=== PATIENT | female | born 2000 | race Two or more races ===

== ENCOUNTER 2024-09-04 08:56 | Outpatient (AMB) | payer BC, SELFPAY ==
[2024-09-04 09:02] VITALS: BP 100/62; PULSE 80; RESP 16; TEMP 35.7; O2SAT 99; BMI 24.1
--- NOTE | 2024-09-04 09:02 | OBCLNT_ITS ---
Vital Signs 09/04/24 09:02 Height 1.6 m Height Method Stated Weight 61.915 kg Weight Measurement Method Standing Scale BMI 24.1 BP 100/62 Blood Pressure Source Automatic Cuff Blood Pressure Location Left Upper Arm Position Sitting Respiration 16 Pulse 80 Pulse Source Monitor Temp 96.3 F L Temp Source Oral Pulse Oximetry (%) 99 Oxygen Delivery Method Room Air Allergies/Home Meds Allergies & Medications Allergies No Known Allergies Allergy (Verified 09/04/24 09:03) Medication Reconciliation No Known Home Medications 09/04/24 [History Confirmed 09/04/24] Intake Visit Data Collection New Patient or Established: Established Patient (seen at [facility] within 3 years) Reason for Visit:: First visit for confirmation Seen by Clinical Staff ONLY (RN/MA): No Higher Level Teaching Assistant Required: No Do You Feel Safe at Home: Yes Authorities Contacted: N/A PCP or OBGYN visit in last 3 months: Yes Date of Last PCP or OBGYN visit: 08/27/24 Hx Now: Yes Are you currently on any form of Control: No Pain Present Currently: No Pain Scale Used: Ch-Child/Numerical Pain scale:: 0 Smoking Status Smoking Status: Never smoker Questionnaires Covid-19 Vaccine Questionnaire Has patient been vacinated for Covid-19 Have you been vacinated for Covid-19: Yes PHQ-9 PHQ-2 Over the last 2 weeks, how often have you been bothered by any of the following problems? 1. Little interest or pleasure in doing things: not at all 2. Feeling down, depressed, or hopeless: not at all Total score: 0 PHQ-9 3. Trouble falling or staying asleep, or sleeping too much: Not at all 4. Feeling tired or having little energy: Not at all 5. Poor appetite or overeating: Not at all 6. Feeling bad about yourself - or that you are a failure or have let yourself or your family down: Not at all 7. Trouble concentrating on things, such as reading the newspaper or watching television: Not at all 8. Moving or speaking so slowly that other people could have noticed? - Or the opposite - being so fidgety or restless that you have been moving around a lot more than usual: not at all 9. Thoughts that you would be better off or of hurting yourself in some way: Not at all Total score: 0 If you checked off any problems, how difficult have these problems made it for you to do your work, take care of things at home, or get along with other people?: not difficult at all Source: Developed by Drs. Oscar Quarles, Lottie Boswell, Anjel Berry and colleagues, with an educational gage from [employer]. Depression screen completed yes Social History Living Situation History Marital Status: Life Partner Lives With: Family Housing: House Tobacco History Smoking Status: Never smoker Alcohol History Alcohol Intake: Never Domestic Abuse History Do You Feel Safe at Home: Yes Past Medical History Past Medical History Have you ever been diagnosed with any of the following: History of Present Illness HPI Narrative Justina Ryan presents for her first visit for a newly confirmed . She is unsure of her last menstrual period date and has not had any detailed labs or tests done yet, aside from a positive test at a doctor's office. The patient reports having an 8-month-old son from a previous , which was delivered normally at [facility]. She has stopped her son. Justina is currently taking vitamins and has an adequate supply. No specific complaints or symptoms related to the were mentioned during the visit. The patient's overall health status appears stable, with no reported concerns or changes in functioning. Obstetric History - GTPAL: G2 T1 L1 - Current : - Gestational age: Approximately 15 weeks based on ultrasound measurements - history: - Delivered a healthy male infant (Antwan) 8 months ago - Normal vaginal at [facility] - Delivered by Dr. Gurrola (possibly Radhika Gurrola) Surgical History - Vaginal delivery 8 months ago Medications and Supplements - vitamins Social History - Children: Has an 8-month-old son named Antwan - : Recently stopped OB Initial Visit Menstrual History Menstrual reliability: unknown Flow: normal Menstrual regularity: irregular Monthly: No Age at menarche: 14 On control pills at conception: No OB History : 2 Para: 1 Hx Total # of Abortions (Spontaneous & Elective): 0 Delivery History 1st : date: 12/10/23 sex: male Delivery type: vaginal History of depression before or after : No Infection History & Risk Evaluation History of STDs: none HIV risk evaluation: low risk Hepatitis B risk evaluation: low risk Patient or partner has history of Genital Herpes: No Varicella/chicken pox status: immunized Genetic Screening & History Genetic Screening/Teratology Counseling - Includes patient, baby's father, or anyone in either family with: 1. Patient's age 35 years or older as of estimated date of delivery: No 2. Thalassemia (Palestinian, Maltese, Mediterranean, or Background); MCV less than 80: No 3. Neural Tube Defect (Meningomyelocele, Spina Bifida, or Anencephaly): No 4. Congenital Heart Defect: No 5. Down Syndrome: No 6. Franck-Sachs (Ashkenazi Orthodox, Cajun, Romanian [place]): No 7. Kinza Disease (Ashkenazi Orthodox): No 8. Familial Dysautonomia (Ashkenazi Orthodox): No 9. Sickle Cell Disease or Trait (): No 10. Hemophilia or other blood disorders: No 11. Muscular Dystrophy: No 12. Cystic Fibrosis: No 13. Vanessa's Chorea: No 14. Mental Retardation/Autism: No 15. Other inherited genetic or chromosomal disorder: No 16. Maternal Metabolic Disorder (EG,TYPE 1 Diabetes, PKU): No 17. Patient or baby's father had a child with defects not listed above: No 18. Recurrent loss or a stillbirth: No 19. Medications (including supplements, vitamins, herbs or otc drugs)/illicit/recreational drugs/alcohol since last menstrual period: No 20. Any other: No Infection History 1. Live with someone with TB or exposed to TB: No 2. Rash or viral illness since last menstrual period: No 3. Hepatitis B,C: No Other (see comments) Source: [employer] OB Flowsheet OB Flowsheet Initial Weight: Not Recorded Date -?-?-?-?-?-?-?-?-?-?-?-?- EGA Weight Edema CTX Effacement BP Fundal ht Pres Dilation Effacement Station Visit Note Alb Glu FHR Mov 09/04/24 -?-?-?-?-?-?-?-?-?-?-?-?- 15w 0d 61.915 kg 100/62 Gabe Ryan, at approx. 15w0d, presents for initial visit. No CTX/LOF/VB. Reports good overall heal th. No CABRERA/VS, Epig/RUQ pain. Unsure of LMP; confirmed previ ously. Delivered healthy male (Antwan) 8 months ago via vaginal delivery at [place] by Dr. Gurrola. No current complaints. Has stopped . Taking vitamins. Ultrasound (09/04/2024): FHR 148 bpm, EGA ~15w based on HC. Femur and tibia visualized. Assessment & Plan: Confirmed intrauterine , dating by ultrasound at ~15w0d. Complete comprehensive ultrasound for da ting and anatomy Order full initial lab panel Order genetic screening (trisomy 13/18 1) [facility] Labs to be completed at [facility] due to insurance Continue vitamins Provided paperwork for labs and imaging Reviewed education and warning signs Review of Systems Review of Systems Systems Reviewed: All systems reviewed, normal except as documented Exam General Limitations: no limitations General Appearance: alert, in no apparent distress and comfortable Head Head exam: atraumatic and normocephalic Eye Eye exam: Present normal appearance, PERRL and EOMI Neck Neck exam: Present normal inspection and full ROM Chest Chest inspection: Present normal inspection and symmetric chest wall rise; Absent tenderness Resp Respiratory exam: Present normal lung sounds bilaterally; Absent respiratory distress Card Cardiovascular exam: Present regular rate and normal rhythm Abdominal Abdominal exam: Present soft and normal bowel sounds; Absent tenderness, guarding, rebound or rigidity Neuro Neurological exam: Present alert and oriented X3 Psych Psychiatric exam: Present normal affect Results Objective Imaging: - Bedside ultrasound: - Estimated gestational age: 15 weeks (based on head circumference) - heart rate: 148 bpm (normal) Assessment & Plan Diagnosis / Problem List (1) Supervision of high risk , unspecified, second trimester: Status: Acute Plan Justina Ryan, female presenting for initial visit, unsure of last menstrual period, with an 8-month-old son from a previous normal delivery. Intrauterine Assessment: Patient presents for initial visit with confirmed test from previous doctor visit. Ultrasound performed in office estimates gestational age at approximately 15 weeks based on head circumference measurement. heart rate of 148 bpm noted, which is within normal range. Patient reports stopping her previous child. Plan: - Perform comprehensive ultrasound today for more accurate dating and measurements - Order initial lab panel - Order genetic panel for Down syndrome and other trisomies screening - Schedule level 2 anatomy ultrasound with [facility] in [place] (part of genetic screening process) - Continue vitamins - Patient to obtain lab work at [facility] in [facility] due to insurance requirements - Provide patient with all necessary paperwork for labs and ultrasounds Educated the patient on the importance of care, including taking vitamins with folic acid, iron, and calcium. Emphasized avoiding alcohol, smoking, and certain medications. Discussed common symptoms like nausea and fatigue, advising small, frequent meals and adequate hydration. Explained t he need for regular check-ups and recommended safe physical activities. Instructed on signs of complications, such as severe cramping or bleeding, and when to seek immediate medical attention. Highlighted the importance of a balanced diet and avoiding high-risk foods. Encouraged open communication about any concerns or questions. Encouraged keeping up with all appointments and tests Office Procedures OB Clinic LOC & Office Proc's Nursing/Assessment Patient Status: Established Patient OB Clinic Nursing Assessment: BP Monitoring, Medication Reconciliation, Update PMH in EMR and Vital Signs OB Clinic Coordination of Care: Consent,records obtained, informed consent, Education Simp Pt/Fam, Lab and Imaging orders and Staff clarify orders Established Patient Charge Established Patient Point Assignment: 90 Established Patient Point Charge: EP Level 3 (80-115) Bedside Ultrasounds US Transabdominal >14 weeks at bedside: Yes
== END 2024-09-04 09:23 | disposition home or self-care (01) ==
LOC: HODSOBC 08:56
PROVIDERS: PCP Obstetrics & Gynecology; Referring Provider Obstetrics & Gynecology; Supervising Provider Obstetrics & Gynecology; Visit Provider Obstetrics & Gynecology
DX: O09.92 Supervision of high risk pregnancy, unspecified, second trimester (principal); Z3A.15 15 weeks gestation of pregnancy
CPT/HCPCS: 76801; 76805; 99213; G0463

== ENCOUNTER → 2024-09-04 | Outpatient (CLI) | payer BC, SELFPAY ==
--- NOTE | 2024-09-04 10:11 | XR_ITS ---
Examination: Complete OB ultrasound greater than 14 weeks Date and time of exam: September 04, 2024 1026 hours INDICATIONS: Supervision of normal Findings: Viable intrauterine single fetus with single amniotic sac presentation transverse head maternal left Cardiac motion 152 BPM Placenta posterior grade 2 Umbilical cord insertion seen Amniotic fluid index 7.0 cm spine posterior Ovaries obscured by bowel gas. Composite estimated gestational age based on BPD, head circumference, abdominal circumference, femur length is 14 weeks 5 days Estimated weight 94 g. Survey of intracranial anatomy, spinal anatomy, abdominal anatomy, four-chamber heart performed with no abnormalities identified. Impression: Viable intrauterine gestation transverse presentation.
== END | disposition home or self-care (01) ==
PROVIDERS: PCP Family Medicine; Referring Provider Obstetrics & Gynecology; Visit Provider Obstetrics & Gynecology
DX: O32.2XX0 Maternal care for transverse and oblique lie, not applicable or unspecified (principal); Z3A.14 14 weeks gestation of pregnancy
CPT/HCPCS: 76805

== ENCOUNTER 2024-10-07 09:22 | Outpatient (AMB) | payer BC, SELFPAY ==
[2024-10-07 09:35] VITALS: BP 116/66; PULSE 87; RESP 15; TEMP 36.5; O2SAT 98; BMI 25.0
--- NOTE | 2024-10-07 09:35 | AMB.OBVISIT ---
Vital Signs 10/07/24 09:35 Height 1.6 m Height Method Stated Weight 64.013 kg Weight Measurement Method Standing Scale BMI 25.0 BP 116/66 Blood Pressure Source Automatic Cuff Blood Pressure Location Left Upper Arm Position Sitting Respiration 15 Pulse 87 Pulse Source Monitor Temp 97.7 F Temp Source Oral Pulse Oximetry (%) 98 Oxygen Delivery Method Room Air Allergies/Home Meds Allergies & Medications Allergies No Known Allergies Allergy (Verified 10/07/24 09:36) Medication Reconciliation No Known Home Medications 09/04/24 [History Confirmed 10/07/24] Intake Visit Data Collection New Patient or Established: Established Patient (seen at [facility] within 3 years) Reason for Visit:: care Seen by Clinical Staff ONLY (RN/MA): No Material Expediter Required: No Do You Feel Safe at Home: Yes Authorities Contacted: N/A PCP or OBGYN visit in last 3 months: Yes Hx Now: Yes Are you currently on any form of Control: No Pain Present Currently: No Pain Scale Used: Ch-Child/Numerical Pain scale:: 0 Smoking Status Smoking Status: Never smoker Questionnaires Covid-19 Vaccine Questionnaire Has patient been vacinated for Covid-19 Have you been vacinated for Covid-19: No PHQ-9 PHQ-2 Over the last 2 weeks, how often have you been bothered by any of the following problems? 1. Little interest or pleasure in doing things: not at all 2. Feeling down, depressed, or hopeless: not at all Total score: 0 PHQ-9 3. Trouble falling or staying asleep, or sleeping too much: Not at all 4. Feeling tired or having little energy: Not at all 5. Poor appetite or overeating: Not at all 6. Feeling bad about yourself - or that you are a failure or have let yourself or your family down: Not at all 8. Moving or speaking so slowly that other people could have noticed? - Or the opposite - being so fidgety or restless that you have been moving around a lot more than usual: not at all 9. Thoughts that you would be better off or of hurting yourself in some way: Not at all Source: Developed by Drs. Oscar Quarles, Lottie Boswell, Anjel Berry and colleagues, with an educational gage from [employer]. Depression screen completed yes Social History Living Situation History Lives With: Family Housing: House Tobacco History Smoking Status: Never smoker Alcohol History Alcohol Intake: Never Domestic Abuse History Do You Feel Safe at Home: Yes Past Medical History Past Medical History Have you ever been diagnosed with any of the following: History of Present Illness HPI Narrative - Justina Suarez is a 2 para 1 patient at 19 weeks and 5 days gestation, presenting for a routine visit. - Patient reports overall improvement in her symptoms: - Denies current nausea, vomiting, or cramping - States these symptoms are getting better now - No other specific complaints or concerns mentioned during the visit No contractions/ LOF/VB, reports good FM No CABRERA/VC/RUQ/Epig pain Care OB Visit Log OB Flowsheet Initial Weight: Not Recorded Date <del>?</del> EGA Weight Edema CTX Effacement BP Fundal ht Pres Dilation Effacement Station Visit Note Alb Glu FHR Mov 09/04/24 <del>?</del> 15w 0d 61.915 kg 100/62 Justina Ryan, at approx. 15w0d, presents for initial visit. No CTX/LOF/VB. Reports good overall health. No CABRERA/VS, Epig/RUQ pain. Unsure of LMP; confirmed previously. Delivered healthy male (Antwan) 8 months ago via vaginal delivery at [place] by Dr. Gurrola. No current complaints. Has stopped . Taking vitamins. Ultrasound (09/04/2024): FHR 148 bpm, EGA ~15w based on HC. Femur and tibia visualized. Assessment & Plan: Confirmed intrauterine , dating by ultrasound at ~15w0d. Complete comprehensive ultrasound for dating and anatomy Order full initial lab panel Order genetic screening (trisomy 13/18/21) Schedule level [address] [facility]) Labs to be completed at [facility] due to insurance Continue vitamins Provided paperwork for labs and imaging Reviewed education and warning signs 10/07/24 <del>?</del> 19w 5d 64.013 kg 116/66 No CTX/LOF/VB, reports good FM. No CABRERA/VC/RUQ/Epig pain. Patient feels improvement in symptoms; no nausea, vomiting, or cramping. FHR: Detected on ultrasound. Anatomy visualized including legs, spine, ribs, vessels, and head. Labs: A+ blood type, Ab screen neg, Rubella immune, Hgb 12.7, Hct 36.8, RPR non-reactive, Hep B non-reactive, HIV negative. Assessment & Plan: Uncomplicated at 19w5d Provide referral for level 2 anatomy scan at [facility] (before 24w) Genetic screening form given (DS + gender) F/u visit scheduled 10/16 at 12:00 PM Schedule 4-week return at [facility] Routine counseling reviewed Let me know if you'd like this added to your consolidated OB note set. 145 active LILIANA Calculator Estimated Delivery Date Method Current WG Current Estimate 02/26/25 Ultrasound #1 19w 6d Other Estimates 02/26/25 LMP (Uncertain) 19w 6d Exam General General Appearance: alert, in no apparent distress and healthy appearing Head Head exam: atraumatic Neck Neck exam: Present normal inspection and trachea midline Chest Chest inspection: Present normal inspection and symmetric chest wall rise External exam: Present normal external exam; Absent tenderness Neuro Neurological exam: Present oriented X3 Psych Psychiatric exam: Present normal affect and normal mood Assessment & Plan Diagnosis / Problem List (1) Supervision of high risk , unspecified, second trimester: Status: Acute Plan Problem List - , second trimester - A-positive blood type Assessment - 2 Para 1 at 19 weeks and 5 days gestation - Estimated due date: 02/26/2025 - Ultrasound performed: anatomy visualized, including legs, body, spine, ribs, blood vessels, and head - Lab results: - Antibody screen negative - Rubella immune - Hemoglobin 12.7, hematocrit 36.8 - Blood type A-positive - RPR non-reactive - Hepatitis B non-reactive - HIV negative Plan - Referral for level 2 2nd trimester ultrasound at [facility] (to be done between now and 24 weeks) - Additional genetic testing form provided for Down Syndrome screening and gender determination - Follow-up appointment scheduled for October 16 at 12 o'clock - Patient to schedule 4-week follow-up appointment at [facility] Educated the patient on labor signs, including regular contractions, lower back pain, and changes in vaginal discharge. Advised avoiding heavy lifting and getting adequate rest. Instructed to contact the office immediately if any signs occur. Discussed the importance of a balanced diet rich in folic acid, iron, and calcium, and provided a list of recommended and to-avoid foods. Emphasized avoiding high-sugar foods to reduce gestational diabetes risk. Encouraged hydration and frequent, small meals for energy.. Office Procedures OB Clinic LOC & Office Proc's Nursing/Assessment Patient Status: Established Patient OB Clinic Nursing Assessment: Medication Reconciliation, Update PMH in EMR and Vital Signs OB Clinic Coordination of Care: Complex Care and Chronic Disease 1-5, Consent,records obtained, informed consent, Education Simp Pt/Fam, Results/Orders obtained and Staff clarify orders Special Needs: Heart tones Miscellaneous Interventions: Blood/Urine Collection Established Patient Charge Established Patient Point Assignment: 150 Established Patient Point Charge: EP Level 4 (120-155)
== END 2024-10-07 10:00 | disposition home or self-care (01) ==
PROVIDERS: PCP Obstetrics & Gynecology; Referring Provider Obstetrics & Gynecology; Supervising Provider Obstetrics & Gynecology; Visit Provider Obstetrics & Gynecology
DX: O09.92 Supervision of high risk pregnancy, unspecified, second trimester (principal); Z3A.19 19 weeks gestation of pregnancy
CPT/HCPCS: 99214; G0463

== ENCOUNTER 2024-11-06 13:52 | Outpatient (AMB) | payer BC, SELFPAY ==
[2024-11-06 14:17] VITALS: BP 120/67; PULSE 87; RESP 17; TEMP 36.6; O2SAT 98; BMI 26.4
--- NOTE | 2024-11-06 14:17 | OBCLNT_ITS ---
Vital Signs 11/06/24 14:17 Height 1.6 m Height Method Stated Weight 67.755 kg Weight Measurement Method Standing Scale BMI 26.4 BP 120/67 Blood Pressure Source Automatic Cuff Blood Pressure Location Right Upper Arm Position Sitting Respiration 17 Pulse 87 Pulse Source Monitor Temp 98 F Temp Source Oral Pulse Oximetry (%) 98 Oxygen Delivery Method Room Air Allergies/Home Meds Allergies & Medications Allergies No Known Allergies Allergy (Verified 11/06/24 14:18) Medication Reconciliation metronidazole 0.75 % (37.5 mg/5 gram) vaginal gel 1 appful vaginal QDAY 5 days #70 grams 11/06/24 [Rx] Intake Visit Data Collection New Patient or Established: Established Patient (seen at [facility] within 3 years) Reason for Visit:: CARE Seen by Clinical Staff ONLY (RN/MA): No Orthopedic Physician Assistant Required: No Do You Feel Safe at Home: Yes Authorities Contacted: N/A PCP or OBGYN visit in last 3 months: Yes Hx Now: Yes Are you currently on any form of Control: No Pain Present Currently: No Pain Scale Used: Ch-Child/Numerical Pain scale:: 0 Smoking Status Smoking Status: Never smoker Questionnaires Covid-19 Vaccine Questionnaire Has patient been vacinated for Covid-19 Have you been vacinated for Covid-19: Yes PHQ-9 PHQ-2 Over the last 2 weeks, how often have you been bothered by any of the following problems? 1. Little interest or pleasure in doing things: not at all 2. Feeling down, depressed, or hopeless: not at all Total score: 0 PHQ-9 3. Trouble falling or staying asleep, or sleeping too much: Not at all 4. Feeling tired or having little energy: Not at all 5. Poor appetite or overeating: Not at all 6. Feeling bad about yourself - or that you are a failure or have let yourself or your family down: Not at all 7. Trouble concentrating on things, such as reading the newspaper or watching television: Not at all 8. Moving or speaking so slowly that other people could have noticed? - Or the opposite - being so fidgety or restless that you have been moving around a lot more than usual: not at all 9. Thoughts that you would be better off or of hurting yourself in some way: Not at all Total score: 0 Source: Developed by Drs. Oscar Quarles, Lottie Boswell, Anjel Berry and colleagues, with an educational gage from [employer]. Depression screen completed yes Social History Living Situation History Lives With: Family Housing: House Tobacco History Smoking Status: Never smoker Alcohol History Alcohol Intake: Never Domestic Abuse History Do You Feel Safe at Home: Yes History of Present Illness HPI Narrative Patient is a 24-year-old -0-0-1 status post vaginal delivery in 2023. Patient [address] Whitmore twice. She presents for an OB check. She stays at home with her son. 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 She might want to pursue this after delivery. The father the baby is a banking officer. Care OB Visit Log OB Flowsheet Initial Weight: Not Recorded Date -?-?-?-?-?-?-?-?-?-?-?-?- EGA Weight BP Alb Glu CTX Pres Fundal ht FHR Mov Dilation Station Effacement Hx Notes Visit Note 09/04/24 -?-?-?-?-?-?-?-?-?-?-?-?- 15w 0d 61.915 kg 100/62 Justina H., at approx. 15w0d, presents for initial visit. No CTX/LOF/VB. Reports good overall heal th. No CABRERA/VS, Epig/RUQ pain. Unsure of LMP; confirmed previ ously. Delivered healthy male (Antwan) 8 months ago via vaginal delivery at [place] by Dr. Gurrola. No current complaints. Has stopped . Taking vitamins. Ultrasound (09/04/2024): FHR 148 bpm, EGA ~15w based on HC. Femur and tibia visualized. Assessment & Plan: Confirmed intrauterine , dating by ultrasound at ~15w0d. Complete comprehensive ultrasound for da ting and anatomy Order full initial lab panel Order genetic screening (trisomy 13/18/2 1) Schedule level 2 anatomy US at [facility] ([place]) Labs to be completed at [facility] due to insurance Continue vitamins Provided paperwork for labs and imaging Reviewed education and warning signs 10/07/24 -?-?-?-?-?-?-?-?-?-?-?-?- 19w 5d 64.013 kg 116/66 145 active No CTX/LOF/VB, reports good FM. No CABRERA/VC/RUQ/Epig pain. Patient feels improvement in s ymptoms; no nausea, vomiting, or cramping. FHR: Detected on ultrasound. Anatomy vis ualized including legs, spine, ribs, vessels, and head. Labs: A+ blood type, Ab screen neg, Rube lla immune, Hgb 12.7, Hct 36.8, RPR non- reactive, Hep B non-reactive, HIV negative. Assessment & Plan: Uncomplicated at 19w5d Provide referral for level 2 anatomy sca n at [facility]?s (before 24w) Genetic screening form given (DS + gende r) F/u visit scheduled 10/16 at 12:00 PM Schedule 4-week return at medical front desk coordinator Routine counseling reviewed Let me know if you'd like this added to your consolidated OB note set. 11/06/24 -?-?-?-?-?-?-?-?-?-?-?-?- 24w 0d 67.755 kg 120/67 24 147 active No vaginal bleeding good movement. Patient reports a odor and discharge. Possible fishy smell. History of BV in the past x 1. Had NIPT and is normal 46XX. 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 LILIANA Calculator Estimated Delivery Date Method Current WG Current Estimate 02/26/25 Ultrasound #1 24w 0d Other Estimates 02/26/25 LMP (Uncertain) 24w 0d Comments: Unsure LMP. Dated by 14-week ultrasound. Ultrasound 09/04/24 14 5/7 weeks. EDC 03/04/25 On chart. -0-0-1. Close interval pregnancies. History of hemorrhage without a blood transfusion last delivery. labs up-to-date in the chart :A+\antibody negative\rubella immune\RPR nonreactive\hepatitis B surface antigen negative\HIV negative. NIPT 46XX. Ultrasound is scheduled at [facility] next week. Expected Delivery Route/Plan Anticipate . No epidural last time. hemorrhage without transfusion last delivery. Specific Issue/Plans Close interval pregnancies Notes Visit Date: 11/06/24 Last Updated by: Krystle Drew (OB Clinic)MD Possible BV. Ordered MetroGel. Reviewed NIPT normal. Ordered GCT at [facility]. Office Procedures OB Clinic LOC & Office Proc's Nursing/Assessment Patient Status: Established Patient OB Clinic Nursing Assessment: Medication Reconciliation, Update PMH in EMR and Vital Signs OB Clinic Coordination of Care: Complex Care and Chronic Disease 1-5, Consent,records obtained, informed consent, Education Simp Pt/Fam, Lab and Imaging orders, Results/Orders obtained and Staff clarify orders Special Needs: Heart tones Established Patient Charge Established Patient Point Assignment: 135 Established Patient Point Charge: EP Level 4 (120-155) Assessment & Plan Diagnosis / Problem List (1) : Status: Acute Qualifiers: Weeks of gestation: 24 weeks Qualified Code(s): Z3A.24 - 24 weeks gestation of (2) Vaginitis affecting , antepartum: Status: Acute Assessment and Plan: Probable bacterial vaginosis. Treat with Metro gel.
== END 2024-11-06 15:06 | disposition home or self-care (01) ==
LOC: HODSOBC 13:52
PROVIDERS: Supervising Provider Obstetrics & Gynecology; Visit Provider Obstetrics & Gynecology
DX: O09.892 Supervision of other high risk pregnancies, second trimester (principal); Z3A.24 24 weeks gestation of pregnancy; O23.592 Infection of other part of genital tract in pregnancy, second trimester; N76.0 Acute vaginitis
CPT/HCPCS: 99214; G0463

== ENCOUNTER 2024-12-03 08:23 | Outpatient (AMB) | payer BC, SELFPAY ==
--- NOTE | 2024-12-03 08:29 | AMB.OBVISIT ---
Vital Signs 12/03/24 08:30 Height 1.6 m Height Method Stated Weight 71.781 kg Weight Measurement Method Standing Scale BMI 28.0 BP 117/69 Blood Pressure Source Automatic Cuff Blood Pressure Location Right Upper Arm Position Sitting Respiration 17 Pulse 78 Pulse Source Monitor Temp 97.6 F Temp Source Temporal Artery Scan Pulse Oximetry (%) 98 Oxygen Delivery Method Room Air Allergies/Home Meds Allergies & Medications Allergies No Known Allergies Allergy (Verified 12/03/24 08:36) Medication Reconciliation No Known Home Medications 12/03/24 [History Confirmed 12/03/24] Intake Visit Data Collection New Patient or Established: Established Patient (seen at [facility] within 3 years) Reason for Visit:: OBC Seen by Clinical Staff ONLY (RN/MA): No [place] Drill Operator Required: No Do You Feel Safe at Home: Yes Authorities Contacted: N/A PCP or OBGYN visit in last 3 months: Yes Hx Now: Yes Are you currently on any form of Control: No Pain Present Currently: No Pain Scale Used: Ch-Child/Numerical Pain scale:: 0 Smoking Status Smoking Status: Never smoker Questionnaires Covid-19 Vaccine Questionnaire Has patient been vacinated for Covid-19 Have you been vacinated for Covid-19: No PHQ-9 PHQ-2 Over the last 2 weeks, how often have you been bothered by any of the following problems? 1. Little interest or pleasure in doing things: not at all 2. Feeling down, depressed, or hopeless: not at all Total score: 0 PHQ-9 3. Trouble falling or staying asleep, or sleeping too much: Not at all 4. Feeling tired or having little energy: Not at all 5. Poor appetite or overeating: Not at all 6. Feeling bad about yourself - or that you are a failure or have let yourself or your family down: Not at all 7. Trouble concentrating on things, such as reading the newspaper or watching television: Not at all 8. Moving or speaking so slowly that other people could have noticed? - Or the opposite - being so fidgety or restless that you have been moving around a lot more than usual: not at all 9. Thoughts that you would be better off or of hurting yourself in some way: Not at all Total score: 0 If you checked off any problems, how difficult have these problems made it for you to do your work, take care of things at home, or get along with other people?: not difficult at all Source: Developed by Drs. Oscar Quarles, Lottie Boswell, Anjel Berry and colleagues, with an educational gage from [employer]. Depression screen completed yes Social History Living Situation History Marital Status: Lives With: Family Housing: House Tobacco History Smoking Status: Never smoker Second Hand Smoke Exposure: No Alcohol History Alcohol Intake: Never Domestic Abuse History Do You Feel Safe at Home: Yes History of Present Illness HPI Narrative Patient is a 24-year-old -0-0-1 presents for care. She underwent a vaginal delivery in 2023. She did well at . She had a boy named Antwan. She went naturally and did not get an epidural. She is having a girl this time. Her daughter's name will be I left. Care OB Visit Log OB Flowsheet Initial Weight: Not Recorded Date <del>?</del> EGA Weight BP Alb Glu CTX Pres Fundal ht FHR Mov Dilation Station Effacement Hx Notes Visit Note 09/04/24 <del>?</del> 15w 0d 61.915 kg 100/62 Justina H., at approx. 15w0d, presents for initial visit. No CTX/LOF/VB. Reports good overall health. No CABRERA/VS, Epig/RUQ pain. Unsure of LMP; confirmed previously. Delivered healthy male (Antwan) 8 months ago via vaginal delivery at [place] by Dr. Gurrola. No current complaints. Has stopped . Taking vitamins. Ultrasound (09/04/2024): FHR 148 bpm, EGA ~15w based on HC. Femur and tibia visualized. Assessment & Plan: Confirmed intrauterine , dating by ultrasound at ~15w0d. Complete comprehensive ultrasound for dating and anatomy Order full initial lab panel Order genetic screening (trisomy 13/18/21) Schedule level [address] [facility] ([place]) Labs to be completed at [facility] due to insurance Continue vitamins Provided paperwork for labs and imaging Reviewed education and warning signs 10/07/24 <del>?</del> 19w 5d 64.013 kg 116/66 145 active No CTX/LOF/VB, reports good FM. No CABRERA/VC/RUQ/Epig pain. Patient feels improvement in symptoms; no nausea, vomiting, or cramping. FHR: Detected on ultrasound. Anatomy visualized including legs, spine, ribs, vessels, and head. Labs: A+ blood type, Ab screen neg, Rubella immune, Hgb 12.7, Hct 36.8, RPR non-reactive, Hep B non-reactive, HIV negative. Assessment & Plan: Uncomplicated at 19w5d Provide referral for level 2 anatomy scan at [facility]?s (before 24w) Genetic screening form given (DS + gender) F/u visit scheduled 10/16 at 12:00 PM Schedule 4-week return at front office representative Routine counseling reviewed Let me know if you'd like this added to your consolidated OB note set. 11/06/24 <del>?</del> 24w 0d 67.755 kg 120/67 24 147 active No vaginal bleeding good movement. Patient reports a odor and discharge. Possible fishy smell. History of BV in the past x 1. Had NIPT and is normal 46XX. 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 12/03/24 <del>?</del> 27w 6d 71.781 kg 117/69 active No vaginal bleeding good movement no loss of fluids reviewed glucose challenge test which is low at 59. Her hemoglobin is 11. Recommend iron and B12. Patient to have frequent snacks. Glucose challenge test low at 59. Hemoglobin is 11. Recommended frequent snacks. LILIANA Calculator Estimated Delivery Date Method Current WG Current Estimate 02/26/25 Ultrasound #1 27w 6d Other Estimates 02/26/25 LMP (Uncertain) 27w 6d Expected Delivery Route/Plan -0-0-1 had a vaginal delivery in 2023. Male named Antwan. Anticipate . No epidural last time. hemorrhage without transfusion last delivery. This 1 is a girl named Juliet. Specific Issue/Plans Close interval pregnancies Notes Visit Date: 12/03/24 Last Updated by: Krystle Drew (OB Clinic)MD labs on the chart A positive/antibody negative/ rubella immune/ RPR nonreactive/ HIV negative/ hepatitis B surface antigen negative./ NIPT 46XX. Visit Date: 11/06/24 Last Updated by: Krystle Drew (OB Clinic)MD Possible BV. Ordered MetroGel. Reviewed NIPT normal. Ordered GCT at [facility]. Office Procedures OB Clinic LOC & Office Proc's Nursing/Assessment Patient Status: Established Patient OB Clinic Nursing Assessment: Medication Reconciliation, Update PMH in EMR and Vital Signs OB Clinic Coordination of Care: Complex Care and Chronic Disease 1-5, Consent,records obtained, informed consent, Education Simp Pt/Fam and Staff clarify orders Special Needs: Heart tones Established Patient Charge Established Patient Point Assignment: 115 Established Patient Point Charge: EP Level 3 (80-115)
[2024-12-03 08:30] VITALS: BP 117/69; PULSE 78; RESP 17; TEMP 36.4; O2SAT 98; BMI 28.0
== END 2024-12-03 09:27 | disposition home or self-care (01) ==
LOC: HODSOBC 08:23
PROVIDERS: Supervising Provider Obstetrics & Gynecology; Visit Provider Obstetrics & Gynecology
DX: Z34.82 Encounter for supervision of other normal pregnancy, second trimester (principal); Z3A.27 27 weeks gestation of pregnancy
CPT/HCPCS: 99213; G0463

== ENCOUNTER 2025-01-13 10:19 | Outpatient (AMB) | payer BC, SELFPAY ==
[2025-01-13 10:47] VITALS: BP 113/68; PULSE 77; RESP 17; TEMP 36.5; O2SAT 98; BMI 29.2
--- NOTE | 2025-01-13 10:47 | OBCLNT_ITS ---
Vital Signs 01/13/25 10:47 Height 1.6 m Height Method Stated Weight 74.899 kg Weight Measurement Method Standing Scale BMI 29.2 BP 113/68 Blood Pressure Source Automatic Cuff Blood Pressure Location Right Upper Arm Position Sitting Respiration 17 Pulse 77 Pulse Source Monitor Temp 97.7 F Temp Source Temporal Artery Scan Pulse Oximetry (%) 98 Oxygen Delivery Method Room Air Allergies/Home Meds Allergies & Medications Allergies No Known Allergies Allergy (Verified 01/13/25 10:48) Medication Reconciliation No Known Home Medications 12/03/24 [History Confirmed 01/13/25] Intake Visit Data Collection New Patient or Established: Established Patient (seen at [facility] within 3 years) Reason for Visit:: OBC Seen by Clinical Staff ONLY (RN/MA): No Director Multiple Sclerosis Center Required: No Do You Feel Safe at Home: Yes Authorities Contacted: N/A PCP or OBGYN visit in last 3 months: Yes Date of Last PCP or OBGYN visit: 01/01/25 Hx Now: Yes Are you currently on any form of Control: No Pain Present Currently: No Pain Scale Used: Ch-Child/Numerical Pain scale:: 0 Smoking Status Smoking Status: Never smoker Questionnaires Covid-19 Vaccine Questionnaire Has patient been vacinated for Covid-19 Have you been vacinated for Covid-19: No PHQ-9 PHQ-2 Over the last 2 weeks, how often have you been bothered by any of the following problems? 1. Little interest or pleasure in doing things: not at all 2. Feeling down, depressed, or hopeless: not at all Total score: 0 PHQ-9 3. Trouble falling or staying asleep, or sleeping too much: Not at all 4. Feeling tired or having little energy: Not at all 5. Poor appetite or overeating: Not at all 6. Feeling bad about yourself - or that you are a failure or have let yourself or your family down: Not at all 7. Trouble concentrating on things, such as reading the newspaper or watching television: Not at all 8. Moving or speaking so slowly that other people could have noticed? - Or the opposite - being so fidgety or restless that you have been moving around a lot more than usual: not at all 9. Thoughts that you would be better off or of hurting yourself in some way: Not at all Total score: 0 If you checked off any problems, how difficult have these problems made it for you to do your work, take care of things at home, or get along with other people?: not difficult at all Source: Developed by Drs. Oscar Quarlse, Lottie Boswell, Anjel Berry and colleagues, with an educational gage from [employer]. Depression screen completed yes Social History Living Situation History Marital Status: Life Partner Lives With: Family Housing: House Tobacco History Smoking Status: Never smoker Second Hand Smoke Exposure: No Alcohol History Alcohol Intake: Never Domestic Abuse History Do You Feel Safe at Home: Yes Care OB Visit Log OB Flowsheet Initial Weight: Not Recorded Date -?-?-?-?-?-?-?-?-?-?-?-?- EGA Weight BP Alb Glu CTX Pres Fundal ht FHR Mov Dilation Station Effacement Hx Notes Visit Note 09/04/24 -?-?-?-?-?-?-?-?-?-?-?-?- 15w 0d 61.915 kg 100/62 Justina H., at approx. 15w0d, presents for initial visit. No CTX/LOF/VB. Reports good overall heal th. No CABRERA/VS, Epig/RUQ pain. Unsure of LMP; confirmed previ ously. Delivered healthy male (Antwan) 8 months ago via vaginal delivery at [place] by Dr. Gurrola. No current complaints. Has stopped . Taking vitamins. Ultrasound (09/04/2024): FHR 148 bpm, EGA ~15w based on HC. Femur and tibia visualized. Assessment & Plan: Confirmed intrauterine , dating by ultrasound at ~15w0d. Complete comprehensive ultrasound for da ting and anatomy Order full initial lab panel Order genetic screening (trisomy 13/18/2 1) Schedule level 2 anatomy US at [facility] ([place]) Labs to be completed at [facility] due to insurance Continue vitamins Provided paperwork for labs and imaging Reviewed education and warning signs 10/07/24 -?-?-?-?-?-?-?-?-?-?-?-?- 19w 5d 64.013 kg 116/66 145 active No CTX/LOF/VB, reports good FM. No CABRERA/VC/RUQ/Epig pain. Patient feels improvement in s ymptoms; no nausea, vomiting, or cramping. FHR: Detected on ultrasound. Anatomy vis ualized including legs, spine, ribs, vessels, and head. Labs: A+ blood type, Ab screen neg, Rube lla immune, Hgb 12.7, Hct 36.8, RPR non- reactive, Hep B non-reactive, HIV negative. Assessment & Plan: Uncomplicated at 19w5d Provide referral for level 2 anatomy sca n at [facility] (before 24w) Genetic screening form given (DS + gende r) F/u visit scheduled 10/16 at 12:00 PM Schedule 4-week return at front office director Routine counseling reviewed Let me know if you'd like this added to your consolidated OB note set. 11/06/24 -?-?-?-?-?-?-?-?-?-?-?-?- 24w 0d 67.755 kg 120/67 24 147 active No vaginal bleeding good movement. Patient reports a odor and discharge. Possible fishy smell. History of BV in the past x 1. Had NIPT and is normal 46XX. 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 12/03/24 -?-?-?-?-?-?-?-?-?-?-?-?- 27w 6d 71.781 kg 117/69 active No vaginal bleeding good movement no loss of fluids reviewed glucose challenge test which is low at 59. Her hemoglobin is 11. Recommend iron and B12. Patient to have frequent snacks. Glucose challenge test low at 59. Hemoglobin is 11. Recommended frequent snacks. 01/01/25 -?-?-?-?-?-?-?-?-?-?-?-?- 32w 0d 74.446 kg 113/72 32 145 active NO VB or LOF . Baby very active. Need repeat US for growth/anatomy 01/13/25 -?-?-?-?-?-?-?-?-?-?-?-?- 33w 5d 74.899 kg 113/68 absent 34 137 active Baby a ctive. No VB or UCs Need GBBS next visit LILIANA Calculator Estimated Delivery Date Method Current WG Current Estimate 02/26/25 Ultrasound #1 34w 0d Other Estimates 02/26/25 LMP (Uncertain) 34w 0d Expected Delivery Route/Plan -0-0-1 had a vaginal delivery in 2023. A son named Antwan. Anticipate . No epidural last time. hemorrhage without transfusion last delivery. + Balloon Delivered at [facility] This baby is a girl who will be named Juliet. Specific Issue/Plans Close interval pregnancies Notes Visit Date: 01/13/25 Last Updated by: Krystle Drew (OB Clinic)MD Authorized for US for growth Need Structural Survey Results from [facility] Visit Date: 01/01/25 Last Updated by: Krystle Drew (OB Clinic)MD One hour GCT 59 Visit Date: 12/03/24 Last Updated by: Krystle Drew (OB Clinic)MD labs on the chart A positive/antibody negative/ rubella immune/ RPR nonreactive/ HIV negative/ hepatitis B surface antigen negative./ NIPT 46XX. Visit Date: 11/06/24 Last Updated by: Krystle Drew (OB Clinic)MD Possible BV. Ordered MetroGel. Reviewed NIPT normal. Ordered GCT at [facility]. Office Procedures OB Clinic LOC & Office Proc's Nursing/Assessment Patient Status: Established Patient OB Clinic Nursing Assessment: Medication Reconciliation, Update PMH in EMR and Vital Signs OB Clinic Coordination of Care: Complex Care and Chronic Disease 1-5, Consent,records obtained, informed consent, Education Simp Pt/Fam and Staff clarify orders Special Needs: Heart tones Established Patient Charge Established Patient Point Assignment: 115 Established Patient Point Charge: EP Level 3 (80-115) Assessment & Plan Diagnosis / Problem List (1) : Status: Acute Qualifiers: Weeks of gestation: 34 weeks Qualified Code(s): Z3A.34 - 34 weeks gestation of Assessment and Plan: Will need group B strep culture next visit. Additional Plan Follow Up: 2 Weeks
== END 2025-01-13 11:38 | disposition home or self-care (01) ==
LOC: HODSOBC 10:19
PROVIDERS: Supervising Provider Obstetrics & Gynecology; Visit Provider Obstetrics & Gynecology
DX: Z34.83 Encounter for supervision of other normal pregnancy, third trimester (principal); Z3A.33 33 weeks gestation of pregnancy
CPT/HCPCS: 99213; G0463

== ENCOUNTER 2025-01-29 11:50 | Outpatient (AMB) | payer BC, SELFPAY ==
[2025-01-29 12:06] VITALS: BP 118/67; PULSE 86; RESP 17; TEMP 36.8; O2SAT 97; BMI 30.3
--- NOTE | 2025-01-29 12:06 | OBCLNT_ITS ---
Vital Signs 01/29/25 12:06 Height 1.6 m Height Method Measured Weight 77.621 kg Weight Measurement Method Standing Scale BMI 30.3 BP 118/67 Blood Pressure Source Automatic Cuff Blood Pressure Location Right Upper Arm Position Sitting Respiration 17 Pulse 86 Pulse Source Monitor Temp 98.2 F Temp Source Temporal Artery Scan Pulse Oximetry (%) 97 Oxygen Delivery Method Room Air Allergies/Home Meds Allergies & Medications Allergies No Known Allergies Allergy (Verified 01/29/25 12:07) Medication Reconciliation No Known Home Medications 12/03/24 [History Confirmed 01/29/25] Intake Visit Data Collection New Patient or Established: Established Patient (seen at [facility] within 3 years) Reason for Visit:: OBC\GBS Consent obtained for Telemed Visit: No Seen by Clinical Staff ONLY (RN/MA): No Stack Matcher Required: No Do You Feel Safe at Home: Yes Authorities Contacted: N/A PCP or OBGYN visit in last 3 months: Yes Hx Now: Yes Are you currently on any form of Control: No Pain Present Currently: No Pain Scale Used: Ch-Child/Numerical Pain scale:: 0 Smoking Status Smoking Status: Never smoker Questionnaires Covid-19 Vaccine Questionnaire Has patient been vacinated for Covid-19 Have you been vacinated for Covid-19: No PHQ-9 PHQ-2 Over the last 2 weeks, how often have you been bothered by any of the following problems? 1. Little interest or pleasure in doing things: not at all PHQ-9 8. Moving or speaking so slowly that other people could have noticed? - Or the opposite - being so fidgety or restless that you have been moving around a lot more than usual: not at all Source: Developed by Drs. Oscar Quarles, Lottie Boswell, Anjel Berry and colleagues, with an educational gage from [employer]. Social History Living Situation History Lives With: Family Housing: House Tobacco History Smoking Status: Never smoker Second Hand Smoke Exposure: No Alcohol History Alcohol Intake: Never Domestic Abuse History Do You Feel Safe at Home: Yes Care OB Visit Log OB Flowsheet Initial Weight: Not Recorded Date -?-?-?-?-?-?-?-?-?-?-?-?- EGA Weight BP Alb Glu CTX Pres Fundal ht FHR Mov Dilation Station Effacement Hx Notes Visit Note 09/04/24 -?-?-?-?-?-?-?-?-?-?-?-?- 15w 0d 61.915 kg 100/62 Justina H., at approx. 15w0d, presents for initial visit. No CTX/LOF/VB. Reports good overall heal th. No CABRERA/VS, Epig/RUQ pain. Unsure of LMP; confirmed previ ously. Delivered healthy male (Antwan) 8 months ago via vaginal delivery at [facility] by Dr. Gurrola. No current complaints. Has stopped . Taking vitamins. Ultrasound (09/04/2024): FHR 148 bpm, EGA ~15w based on HC. Femur and tibia visualized. Assessment & Plan: Confirmed intrauterine , dating by ultrasound at ~15w0d. Complete comprehensive ultrasound for da ting and anatomy Order full initial lab panel Order genetic screening (trisomy 13/18/2 1) Schedule level 2 anatomy US at [facility] ([place]) Labs to be completed at [facility] due to insurance Continue vitamins Provided paperwork for labs and imaging Reviewed education and warning signs 10/07/24 -?-?-?-?-?-?-?-?-?-?-?-?- 19w 5d 64.013 kg 116/66 145 active No CTX/LOF/VB, reports good FM. No CABRERA/VC/RUQ/Epig pain. Patient feels improvement in s ymptoms; no nausea, vomiting, or cramping. FHR: Detected on ultrasound. Anatomy vis ualized including legs, spine, ribs, vessels, and head. Labs: A+ blood type, Ab screen neg, Rube lla immune, Hgb 12.7, Hct 36.8, RPR non- reactive, Hep B non-reactive, HIV negative. 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 11/06/24 -?-?-?-?-?-?-?-?-?-?-?-?- 24w 0d 67.755 kg 120/67 24 147 active No vaginal bleeding good movement. Patient reports a odor and discharge. Possible fishy smell. History of BV in the past x 1. Had NIPT and is normal 46XX. 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 12/03/24 -?-?-?-?-?-?-?-?-?-?-?-?- 27w 6d 71.781 kg 117/69 active No vaginal bleeding good movement no loss of fluids reviewed glucose challenge test which is low at 59. Her hemoglobin is 11. Recommend iron and B12. Patient to have frequent snacks. Glucose challenge test low at 59. Hemoglobin is 11. Recommended frequent sna cks. 01/01/25 -?-?-?-?-?-?-?-?-?-?-?-?- 32w 0d 74.446 kg 113/72 32 145 active NO VB or LOF . Baby very active. Need repeat US for growth/anatomy 01/13/25 -?-?-?-?-?-?-?-?-?-?-?-?- 33w 5d 74.899 kg 113/68 absent 34 137 active Baby a ctive. No VB or UCs Need GBBS next visit 01/29/25 -?-?-?-?-?-?-?-?-?-?-?-?- 36w 0d 77.621 kg 118/67 absent cephalic 35 143 active NO UCs or LOF, No VB GBBS done LILIANA Calculator Estimated Delivery Date Method Current WG Current Estimate 02/26/25 Ultrasound #1 36w 5d Other Estimates 02/26/25 LMP (Uncertain) 36w 5d Expected Delivery Route/Plan -0-0-1 had a vaginal delivery in 2023. A son named Antwan. Anticipate . No epidural last time. hemorrhage without transfusion last delivery. + Bakri Balloon Delivered at [facility] This baby is a girl who will be named Juliet. Specific Issue/Plans Close interval pregnancies Notes Visit Date: 01/13/25 Last Updated by: Krystle Drew (OB Clinic)MD Authorized for US for growth Need Structural Survey Results from Children's Visit Date: 01/01/25 Last Updated by: Krystle Derw (OB Clinic)MD One hour GCT 59 Visit Date: 12/03/24 Last Updated by: Krystle Drew (OB Clinic)MD labs on the chart A positive/antibody negative/ rubella immune/ RPR nonreactive/ HIV negative/ hepatitis B surface antigen negative./ NIPT 46XX. Visit Date: 11/06/24 Last Updated by: Krystle Drew (OB Clinic)MD Possible BV. Ordered MetroGel. Reviewed NIPT normal. Ordered GCT at [facility]. Office Procedures OB Clinic LOC & Office Proc's Nursing/Assessment Patient Status: Established Patient OB Clinic Nursing Assessment: Medication Reconciliation, Update PMH in EMR and Vital Signs OB Clinic Coordination of Care: Complex Care and Chronic Disease 1-5, Consent,records obtained, informed consent and Education Simp Pt/Fam Special Needs: Heart tones Established Patient Charge Established Patient Point Assignment: 105 Established Patient Point Charge: EP Level 3 (80-115) Assessment & Plan Diagnosis / Problem List (1) : Status: Acute Qualifiers: Weeks of gestation: 36 weeks Qualified Code(s): Z3A.36 - 36 weeks gestation of Plan: GBBS done. Size US ordered
== END 2025-01-29 12:53 | disposition home or self-care (01) ==
LOC: HODSOBC 11:50
PROVIDERS: Supervising Provider Obstetrics & Gynecology; Visit Provider Obstetrics & Gynecology
DX: Z34.83 Encounter for supervision of other normal pregnancy, third trimester (principal); Z3A.36 36 weeks gestation of pregnancy; Z36.85 Encounter for antenatal screening for Streptococcus B
CPT/HCPCS: 99213; G0463

== ENCOUNTER 2025-02-04 13:20 | Outpatient (AMB) | payer BC, SELFPAY ==
--- NOTE | 2025-02-04 13:24 | OBCLNT_ITS ---
Vital Signs 02/04/25 13:25 Height 1.6 m Height Method Stated Weight 78.018 kg Weight Measurement Method Standing Scale BMI 30.4 BP 123/77 Blood Pressure Source Automatic Cuff Blood Pressure Location Left Upper Arm Position Sitting Respiration 16 Pulse 77 Pulse Source Monitor Temp 97.8 F Temp Source Oral Pulse Oximetry (%) 98 Oxygen Delivery Method Room Air Allergies/Home Meds Allergies & Medications Allergies No Known Allergies Allergy (Verified 02/04/25 13:25) Medication Reconciliation No Known Home Medications 12/03/24 [History Confirmed 02/04/25] Intake Visit Data Collection New Patient or Established: Established Patient (seen at [facility] within 3 years) Reason for Visit:: CARE Seen by Clinical Staff ONLY (RN/MA): No Pattern Clerk Required: No Do You Feel Safe at Home: Yes Authorities Contacted: N/A PCP or OBGYN visit in last 3 months: Yes Hx Now: No Are you currently on any form of Control: No Pain Present Currently: No Pain Scale Used: Ch-Child/Numerical Pain scale:: 0 Smoking Status Smoking Status: Never smoker Questionnaires Covid-19 Vaccine Questionnaire Has patient been vacinated for Covid-19 Have you been vacinated for Covid-19: Yes PHQ-9 PHQ-2 Over the last 2 weeks, how often have you been bothered by any of the following problems? 1. Little interest or pleasure in doing things: not at all 2. Feeling down, depressed, or hopeless: not at all Total score: 0 PHQ-9 3. Trouble falling or staying asleep, or sleeping too much: Not at all 4. Feeling tired or having little energy: Not at all 5. Poor appetite or overeating: Not at all 6. Feeling bad about yourself - or that you are a failure or have let yourself or your family down: Not at all 7. Trouble concentrating on things, such as reading the newspaper or watching television: Not at all 8. Moving or speaking so slowly that other people could have noticed? - Or the opposite - being so fidgety or restless that you have been moving around a lot more than usual: not at all 9. Thoughts that you would be better off or of hurting yourself in some way: Not at all Total score: 0 Source: Developed by Lottie HerreraW. Elbert, Anjel Berry and colleagues, with an educational gage from [employer]. Depression screen completed yes Social History Living Situation History Lives With: Family Housing: House Tobacco History Smoking Status: Never smoker Second Hand Smoke Exposure: No Alcohol History Alcohol Intake: Never Domestic Abuse History Do You Feel Safe at Home: Yes Care OB Visit Log OB Flowsheet Initial Weight: Not Recorded Date -?-?-?-?-?-?-?-?-?-?-?-?- EGA Weight BP Alb Glu CTX Pres Fundal ht FHR Mov Dilation Station Effacement Hx Notes Visit Note 09/04/24 -?-?-?-?-?-?-?-?-?-?-?-?- 15w 0d 61.915 kg 100/62 Justina H., at approx. 15w0d, presents for initial visit. No CTX/LOF/VB. Reports good overall heal th. No CABRERA/VS, Epig/RUQ pain. Unsure of LMP; confirmed previ ously. Delivered healthy male (Antwan) 8 months ago via vaginal delivery at [place] by Dr. Gurrola. No current complaints. Has stopped . Taking vitamins. Ultrasound (09/04/2024): FHR 148 bpm, EGA ~15w based on HC. Femur and tibia visualized. Assessment & Plan: Confirmed intrauterine , dating by ultrasound at ~15w0d. Complete comprehensive ultrasound for da ting and anatomy Order full initial lab panel Order genetic screening (trisomy 13/18/2 1) Schedule level 2 anatomy US at [facility] ([place]) Labs to be completed at [facility] due to insurance Continue vitamins Provided paperwork for labs and imaging Reviewed education and warning signs 10/07/24 -?-?-?-?-?-?-?-?-?-?-?-?- 19w 5d 64.013 kg 116/66 145 active No CTX/LOF/VB, reports good FM. No CABRERA/VC/RUQ/Epig pain. Patient feels improvement in s ymptoms; no nausea, vomiting, or cramping. FHR: Detected on ultrasound. Anatomy vis ualized including legs, spine, ribs, vessels, and head. Labs: A+ blood type, Ab screen neg, Rube lla immune, Hgb 12.7, Hct 36.8, RPR non- reactive, Hep B non-reactive, HIV negative. 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 11/06/24 -?-?-?-?-?-?-?-?-?-?-?-?- 24w 0d 67.755 kg 120/67 24 147 active No vaginal bleeding good movement. Patient reports a odor and discharge. Possible fishy smell. History of BV in the past x 1. Had NIPT and is normal 46XX. 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 12/03/24 -?-?-?-?-?-?-?-?-?-?-?-?- 27w 6d 71.781 kg 117/69 active No vaginal bleeding good movement no loss of fluids reviewed glucose challenge test which is low at 59. Her hemoglobin is 11. Recommend iron and B12. Patient to have frequent snacks. Glucose challenge test low at 59. Hemoglobin is 11. Recommended frequent snacks. 01/01/25 -?-?-?-?-?-?-?-?-?-?-?-?- 32w 0d 74.446 kg 113/72 32 145 active NO VB or LOF . Baby very active. Need repeat US for growth/anatomy 01/13/25 -?-?-?-?-?-?-?-?-?-?-?-?- 33w 5d 74.899 kg 113/68 absent 34 137 active Baby a ctive. No VB or UCs Need GBBS next visit 01/29/25 -?-?-?-?-?-?-?-?-?-?-?-?- 36w 0d 77.621 kg 118/67 absent cephalic 35 143 active NO UCs or LOF, No VB GBBS done 02/04/25 -?-?-?-?-?-?-?-?-?-?-?-?- 36w 6d 78.018 kg 123/77 occasional cephalic 37 135 active No LOF or VB GBBS negative LILIANA Calculator Estimated Delivery Date Method Current WG Current Estimate 02/26/25 Ultrasound #1 36w 6d Other Estimates 02/26/25 LMP (Uncertain) 36w 6d Expected Delivery Route/Plan -0-0-1 had a vaginal delivery in 2023. A son named Antwan. Anticipate . No epidural last time. hemorrhage without transfusion last delivery. + Bakri Balloon Delivered at [facility] This baby is a girl who will be named Juliet. Specific Issue/Plans Close interval pregnancies Notes Visit Date: 01/13/25 Last Updated by: Krystle Drew (OB Clinic)MD Authorized for US for growth Need Structural Survey Results from Children's Visit Date: 01/01/25 Last Updated by: Krystle Drew (OB Clinic)MD One hour GCT 59 Visit Date: 12/03/24 Last Updated by: Krystle Drew (OB Clinic)MD labs on the chart A positive/antibody negative/ rubella immune/ RPR nonreactive/ HIV negative/ hepatitis B surface antigen negative./ NIPT 46XX. Visit Date: 11/06/24 Last Updated by: Krystle Drew (OB Clinic)MD Possible BV. Ordered MetroGel. Reviewed NIPT normal. Ordered GCT at [facility]. Office Procedures OB Clinic LOC & Office Proc's Nursing/Assessment Patient Status: Established Patient OB Clinic Nursing Assessment: Medication Reconciliation, Update PMH in EMR and Vital Signs OB Clinic Coordination of Care: Complex Care and Chronic Disease 1-5, Consent,records obtained, informed consent, Education Simp Pt/Fam, Lab and Imaging orders, Results/Orders obtained and Staff clarify orders Special Needs: Heart tones Established Patient Charge Established Patient Point Assignment: 135 Established Patient Point Charge: EP Level 4 (120-155) Assessment & Plan Diagnosis / Problem List (1) : Status: Acute Qualifiers: Weeks of gestation: 36 weeks Qualified Code(s): Z3A.36 - 36 weeks gestation of
[2025-02-04 13:25] VITALS: BP 123/77; PULSE 77; RESP 16; TEMP 36.6; O2SAT 98; BMI 30.4
== END 2025-02-04 13:57 | disposition home or self-care (01) ==
PROVIDERS: Supervising Provider Obstetrics & Gynecology; Visit Provider Obstetrics & Gynecology
DX: Z34.83 Encounter for supervision of other normal pregnancy, third trimester (principal); Z3A.36 36 weeks gestation of pregnancy
CPT/HCPCS: 99214; G0463

== ENCOUNTER 2025-02-12 15:19 | Outpatient (AMB) | payer BC, SELFPAY ==
[2025-02-12 15:24] VITALS: BP 117/68; PULSE 74; RESP 16; TEMP 36.3; O2SAT 97; BMI 30.7
--- NOTE | 2025-02-12 15:24 | OBCLNT_ITS ---
Vital Signs 02/12/25 15:24 Height 1.6 m Height Method Stated Weight 78.698 kg Weight Measurement Method Standing Scale BMI 30.7 BP 117/68 Blood Pressure Source Automatic Cuff Blood Pressure Location Left Upper Arm Position Sitting Respiration 16 Pulse 74 Pulse Source Monitor Temp 97.3 F Temp Source Oral Pulse Oximetry (%) 97 Oxygen Delivery Method Room Air Allergies/Home Meds Allergies & Medications Allergies No Known Allergies Allergy (Verified 02/12/25 15:25) Medication Reconciliation No Known Home Medications 12/03/24 [History Confirmed 02/12/25] Intake Visit Data Collection New Patient or Established: Established Patient (seen at [facility] within 3 years) Reason for Visit:: CARE Seen by Clinical Staff ONLY (RN/MA): No Dj Instructor Required: No Do You Feel Safe at Home: Yes Authorities Contacted: N/A PCP or OBGYN visit in last 3 months: Yes Hx Now: Yes Are you currently on any form of Control: No Pain Present Currently: No Pain Scale Used: Ch-Child/Numerical Pain scale:: 0 Smoking Status Smoking Status: Never smoker Questionnaires Covid-19 Vaccine Questionnaire Has patient been vacinated for Covid-19 Have you been vacinated for Covid-19: No PHQ-9 PHQ-2 Over the last 2 weeks, how often have you been bothered by any of the following problems? 1. Little interest or pleasure in doing things: not at all 2. Feeling down, depressed, or hopeless: not at all Total score: 0 PHQ-9 3. Trouble falling or staying asleep, or sleeping too much: Not at all 4. Feeling tired or having little energy: Not at all 5. Poor appetite or overeating: Not at all 6. Feeling bad about yourself - or that you are a failure or have let yourself or your family down: Not at all 7. Trouble concentrating on things, such as reading the newspaper or watching television: Not at all 8. Moving or speaking so slowly that other people could have noticed? - Or the opposite - being so fidgety or restless that you have been moving around a lot more than usual: not at all 9. Thoughts that you would be better off or of hurting yourself in some way: Not at all Total score: 0 Source: Developed by Drs. Oscar Quarles, Lottie Boswell, Anjel Berry and colleagues, with an educational gage from [employer]. Depression screen completed yes Social History Living Situation History Lives With: Family Housing: House Tobacco History Smoking Status: Never smoker Second Hand Smoke Exposure: No Alcohol History Alcohol Intake: Never Domestic Abuse History Do You Feel Safe at Home: Yes Care OB Visit Log OB Flowsheet Initial Weight: Not Recorded Date -?-?-?-?-?-?-?-?-?-?-?-?- EGA Weight BP Alb Glu CTX Pres Fundal ht FHR Mov Dilation Station Effacement Hx Notes Visit Note 09/04/24 -?-?-?-?-?-?-?-?-?-?-?-?- 15w 0d 61.915 kg 100/62 Justina H., at approx. 15w0d, presents for initial visit. No CTX/LOF/VB. Reports good overall heal th. No CABRERA/VS, Epig/RUQ pain. Unsure of LMP; confirmed previ ously. Delivered healthy male (Antwan) 8 months ago via vaginal delivery at [place] by Dr. Gurrola. No current complaints. Has stopped . Taking vitamins. Ultrasound (09/04/2024): FHR 148 bpm, EGA ~15w based on HC. Femur and tibia visualized. Assessment & Plan: Confirmed intrauterine , dating by ultrasound at ~15w0d. Complete comprehensive ultrasound for da ting and anatomy Order full initial lab panel Order genetic screening (trisomy 13/18/2 1) Schedule level 2 anatomy US at [facility] ([place]) Labs to be completed at [facility] due to insurance Continue vitamins Provided paperwork for labs and imaging Reviewed education and warning signs 10/07/24 -?-?-?-?-?-?-?-?-?-?-?-?- 19w 5d 64.013 kg 116/66 145 active No CTX/LOF/VB, reports good FM. No CABRERA/VC/RUQ/Epig pain. Patient feels improvement in s ymptoms; no nausea, vomiting, or cramping. FHR: Detected on ultrasound. Anatomy vis ualized including legs, spine, ribs, vessels, and head. Labs: A+ blood type, Ab screen neg, Rube lla immune, Hgb 12.7, Hct 36.8, RPR non- reactive, Hep B non-reactive, HIV negative. 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 11/06/24 -?-?-?-?-?-?-?-?-?-?-?-?- 24w 0d 67.755 kg 120/67 24 147 active No vaginal bleeding good movement. Patient reports a odor and discharge. Possible fishy smell. History of BV in the past x 1. Had NIPT and is normal 46XX. 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 12/03/24 -?-?-?-?-?-?-?-?-?-?-?-?- 27w 6d 71.781 kg 117/69 active No vaginal bleeding good movement no loss of fluids reviewed glucose challenge test which is low at 59. Her hemoglobin is 11. Recommend iron and B12. Patient to have frequent snacks. Glucose challenge test low at 59. Hemoglobin is 11. Recommended frequent snacks. 01/01/25 -?-?-?-?-?-?-?-?-?-?-?-?- 32w 0d 74.446 kg 113/72 32 145 active NO VB or LOF . Baby very active. Need repeat US for growth/anatomy 01/13/25 -?-?-?-?-?-?-?-?-?-?-?-?- 33w 5d 74.899 kg 113/68 absent 34 137 active Baby a ctive. No VB or UCs Need GBBS next visit 01/29/25 -?-?-?-?-?-?-?-?-?-?-?-?- 36w 0d 77.621 kg 118/67 absent cephalic 35 143 active NO UCs or LOF, No VB GBBS done 02/04/25 -?-?-?-?-?-?-?-?-?-?-?-?- 36w 6d 78.018 kg 123/77 occasional cephalic 37 135 active No LOF or VB GBBS negative 02/12/25 -?-?-?-?-?-?-?-?-?-?-?-?- 38w 0d 78.698 kg 117/68 occasional cephalic 36 145 active 4 -2 70 Good movement occasional contractions no pressure. No loss of fluids or vaginal bleeding GBBS negative LILIANA Calculator Estimated Delivery Date Method Current WG Current Estimate 02/26/25 Ultrasound #1 38w 0d Other Estimates 02/26/25 LMP (Uncertain) 38w 0d Expected Delivery Route/Plan -0-0-1 had a vaginal delivery in 2023. A son named Antwan. Anticipate . No epidural last time. hemorrhage without transfusion last delivery. + Bakri Balloon Delivered at [facility] This baby is a girl who will be named Juliet. Specific Issue/Plans Close interval pregnancies Notes Visit Date: 02/12/25 Last Updated by: Krystle Drew (OB Clinic)MD Patient is 4 cm dilated. Labor precautions and kick counts given. Patient would like to go natural. Her is in the room today as it is their 1-year-old son and he states they live within 5 minutes of the hospital. Patient did come in for rupture of membranes decreased movement or labor. She will follow-up in 1 week. Visit Date: 01/13/25 Last Updated by: Krystle Drew (OB Clinic)MD Authorized for US for growth Need Structural Survey Results from Children's Visit Date: 01/01/25 Last Updated by: Krystle Drew (OB Clinic)MD One hour GCT 59 Visit Date: 12/03/24 Last Updated by: Krystle Drew (OB Clinic)MD labs on the chart A positive/antibody negative/ rubella immune/ RPR nonreactive/ HIV negative/ hepatitis B surface antigen negative./ NIPT 46XX. Visit Date: 11/06/24 Last Updated by: Krystle Drew (OB Clinic)MD Possible BV. Ordered MetroGel. Reviewed NIPT normal. Ordered GCT at [facility]. Office Procedures OB Clinic LOC & Office Proc's Nursing/Assessment Patient Status: Established Patient OB Clinic Nursing Assessment: Medication Reconciliation, Update PMH in EMR and Vital Signs OB Clinic Coordination of Care: Complex Care and Chronic Disease 1-5, Consent,records obtained, informed consent, Education Simp Pt/Fam, Lab and Imaging orders, Results/Orders obtained and Staff clarify orders Special Needs: Heart tones Established Patient Charge Established Patient Point Assignment: 135 Established Patient Point Charge: EP Level 4 (120-155) Assessment & Plan Diagnosis / Problem List (1) : Status: Acute Qualifiers: Weeks of gestation: 38 weeks Qualified Code(s): Z3A.38 - 38 weeks gestation of
== END 2025-02-12 16:33 | disposition home or self-care (01) ==
LOC: HODSOBC 15:19
PROVIDERS: Supervising Provider Obstetrics & Gynecology; Visit Provider Obstetrics & Gynecology
DX: Z34.83 Encounter for supervision of other normal pregnancy, third trimester (principal); Z3A.38 38 weeks gestation of pregnancy
CPT/HCPCS: 99214; G0463

== ENCOUNTER 2025-02-13 05:30 | Inpatient (IN) | payer BC, SELFPAY ==
[2025-02-13] VITALS (45 sets, daily range): BP systolic 102–147; BP diastolic 62–83; PULSE 59–139; RESP 14–99; TEMP 36.4–36.9; O2SAT 81–100; BMI 30.8
--- NOTE | 2025-02-13 06:16 | ESHP_ITS ---
Documentation for date of: 02/13/25 OB Labor/Induct. HPI History of Present Illness : 2 Term pregnancies: 1 Living children: 1 History of Abortions: Spontaneous and Elective: 0 History of sections: No History of : No LILIANA: 02/27/25 Gestational Age (weeks): 38 Gestational Age (days): 0 History of present illness: The patient is a 25-year-old -0-0-1 with all care uncomplicated with Dr. Arianna Drew at the [facility] OB clinic. Patient presented around 5:00 in the morning in active labor 6 cm dilated 90% effaced 0 station intact. She desires to go natural if possible. Group B strep negative. History of Present Dating criteria: LMP confirmed by 1st trimester US Adequate Care: Yes Ultrasounds: normal mid trimester US Obstetrical complications: none Medical complications: none Labs Maternal Blood Type: A Pos Labs: Positive: Rubella Titre and Negative: RPR, Hepatitis B, HIV, Chlamydia, Gonorrhea and Group Beta Strep Past Medical History Surgical History SURGICAL: Negative Section Meds Home Medications and Allergies Home Medications ?Medication ?Instructions ?Recorded ?Confirmed ?Type No Known Home Medications 12/03/2402/03 History Allergies Allergy/AdvReac Type Severity Reaction Status Date / Time No Known Allergies Allergy Verified 02/13/25 06:12 OB Exam Physical Exam Vital signs: Pulse BP Pulse Ox 72 122/74 81 L 02/13/25 05:43 02/13/25 05:43 02/13/25 06:01 Detailed Labor and Delivery Exam Dilation (cm): 6 Effacement (%): 90 Cervix position: mid station: 0 Consistency: soft Presentation: Vertex Membranes: intact Baseline heart rate: 150 monitor accelerations: 15x15 monitor decelerations: None terminal manager variability: Moderate (-) Tachysystole: No Contraction intensity: Strong OB Assessment & Plan Assessment and Plan (1) : Status: Acute Additional Plan Induction method: none Plan: anticipate NVD (1) Qualifiers: Weeks of gestation: 38 weeks Qualified Code(s): Z3A.38 - 38 weeks gestation of
[2025-02-13 07:09] LABS: Basophils # (Auto) 0.1 Thou/mm3 (0.0-0.2); Basophils % (Auto) 1 % (0-2.5); Eosinophils # (Auto) 0.1 Thou/mm3 (0.0-0.5); Eosinophils % (Auto) 1 % (0-10); Hematocrit 36.2 % (36.0-46.0); Hemoglobin 11.7 g/dL (12.0-16.0); Immature Granulocytes Auto 0.07 Thou/mm3 (0.00-0.00); Lymphocytes # (Auto) 2.8 Thou/mm3 (1.0-4.8); Lymphocytes % (Auto) 28 % (10-50); Mean Corpuscular HGB Conc 32.3 g/dl (31.0-37.0); Mean Corpuscular Hemoglobin 27.1 pg (25.0-35.0); Mean Corpuscular Volume 84 fL (80-100); Monocytes # (Auto) 0.8 Thou/mm3 (0.0-0.8); Monocytes % (Auto) 8 % (0-12); Neutrophils # (Auto) 6.4 Thou/mm3 (1.8-7.7); Neutrophils % (Auto) 62 % (37-80); Nucleated Red Blood Cell # 0.00 Thou/mm3 (0.00-0.00); Nucleated Red Blood Cell % 0 /100 WBC (0); Platelet Count 222 Thou/mm3 (140-440); RDW Standard Deviation 41.9 fL (36.4-46.3); Red Blood Count 4.31 Miln/mm3 (4.00-5.20); White Blood Count 10.2 Thou/mm3 (3.6-11.0)
[2025-02-13] MEDS: LIDOCAINE HCL 1% 20 ML VIAL INFL (07:12)
[2025-02-13] MEDS: BENZO/LANO/ALOE (Dermoplast) 60 GM CAN 1 SPRAY TOP (07:14)
[2025-02-13] MEDS: METHYLERGONOVINE INJ 0.2 MG/ML VIAL IM (07:18)
[2025-02-13] MEDS: OXYTOCIN INJ 10 UNIT/ML VIAL IM (07:19)
[2025-02-13] MEDS: OXYTOCIN in NS 20 units 20 UNIT/1,000 ML BAG 125 UNIT IV (07:20)
[2025-02-13] MEDS: IBUPROFEN TAB 400 MG TABLET 800 MG PO ×2 (07:38→23:56)
[2025-02-13 07:55] LABS: Syphilis Nonreactive (Nonreactive)
[2025-02-13] MEDS: DOCUSATE SOD 100 MG CAPSULE PO (08:51)
[2025-02-13 10:39] LABS: Amphetamine/Metham Scrn,Ur OB Negative (Negative); Benzoylecgonine Screen, Ur OB Negative (Negative); Opiate Screen,Urine OB Negative (Negative); THC Screen,Urine OB Negative (Negative)
[2025-02-13 16:50] LABS: Chlamydia trachomatis PCR Negative (Not Detect); Neisseria Gonorrhoeae DNA PCR Negative (Not Detect); Trichomonas Negative (Negative)
[2025-02-14 04:02] VITALS: BP 102/57; PULSE 65; RESP 18; TEMP 37.2; O2SAT 98
[2025-02-14 05:46] LABS: Basophils # (Auto) 0.1 Thou/mm3 (0.0-0.2); Basophils % (Auto) 1 % (0-2.5); Eosinophils # (Auto) 0.2 Thou/mm3 (0.0-0.5); Eosinophils % (Auto) 1 % (0-10); Hematocrit 31.5 % (36.0-46.0); Hemoglobin 10.0 g/dL (12.0-16.0); Immature Granulocytes Auto 0.07 Thou/mm3 (0.00-0.00); Lymphocytes # (Auto) 3.3 Thou/mm3 (1.0-4.8); Lymphocytes % (Auto) 30 % (10-50); Mean Corpuscular HGB Conc 31.7 g/dl (31.0-37.0); Mean Corpuscular Hemoglobin 27.3 pg (25.0-35.0); Mean Corpuscular Volume 86 fL (80-100); Monocytes # (Auto) 0.8 Thou/mm3 (0.0-0.8); Monocytes % (Auto) 8 % (0-12); Neutrophils # (Auto) 6.6 Thou/mm3 (1.8-7.7); Neutrophils % (Auto) 60 % (37-80); Nucleated Red Blood Cell # 0.00 Thou/mm3 (0.00-0.00); Nucleated Red Blood Cell % 0 /100 WBC (0); Platelet Count 187 Thou/mm3 (140-440); RDW Standard Deviation 43.2 fL (36.4-46.3); Red Blood Count 3.66 Miln/mm3 (4.00-5.20); White Blood Count 11.0 Thou/mm3 (3.6-11.0)
[2025-02-14] MEDS: DOCUSATE SOD 100 MG CAPSULE PO (08:19)
[2025-02-14 09:24] VITALS: BP 112/64; PULSE 78; RESP 18; TEMP 36.7; O2SAT 98
--- NOTE | 2025-02-14 09:56 | PD.LDDS ---
DS: Providers Provider Date of admission: 02/13/25 06:15 Primary care physician: Physician No Primary/Family Admitting Provider: Krystle Drew MD (OB Clinic) Attending Provider on Admission: Alexandra Lovell MD Consults: 02/13/25 08:08 Referral Routine Comment: Attending Provider on DC: Alexandra Lovell MD Discharging Provider: Alexandra Lovell MD DS: Diagnosis Discharge Diagnosis (1) care and examination immediately after delivery: Status: Acute Problem List Completed Was Problem List Reviewed/Reconciled?: Yes Summary/Hosp Course Brief History: The patient is a 25-year-old -0-0-1 with all care uncomplicated with Dr. Arianna Drew at the [facility] OB clinic. Patient presented around 5:00 in the morning in active labor 6 cm dilated 90% effaced 0 station intact. She desires to go natural if possible. Group B strep negative. -- Justina is doing well on PPD1 s/p uncomplicated at term. She has had an uncomplicated course, meeting all milestones and feels ready for discharge home. She is ambulating without lightheadedness, tolerating regular diet no n/v, spontaneously voiding without issue. She has no chest pain or shortness of breath. No fevers or chills. Minimal, appropriate discomfort. Vitals normal, benign exam. Hemodynamically stable with no evidence of infection. PP Hgb 10 from 11.7. Peripartum Data Delivery Method: Normal Vaginal Delivery Episiotomy Description: None Status at Discharge Functional status at discharge: independent ambulation Overall status at discharge: patient is back to baseline Time Spent with Patient Time attestation: Total time spent providing and/or coordinating discharge services: Exam Vital Signs Temp Pulse Resp BP Pulse Ox O2 Del Method 98.0 F 78 18 112/64 98 Room Air 02/14/25 09:24 02/14/25 09:24 02/14/25 09:24 02/14/25 09:24 02/14/25 09:24 02/14/25 09:24 Narrative Exam General: well developed, well nourished, no acute distress, conversant Cardiac: normal heart rate Lungs: breathing without distress Abdomen: soft, post-gravid, non-tender, no rebound or guarding, Fundus firm at u-3cm. Extremities: no pain with palpation of calves, trace edema of BLE Discharge Plan Plan Patient Disposition: HOME (Self Care) Patient condition on transfer: Stable Prescriptions/Referrals Prescriptions/Med Rec: New docusate sodium 100 mg Capsule 100 mg PO BID 10 Days Qty: 20 0RF ibuprofen 800 mg tablet 800 mg PO Q8HR PRN (Reason: Pain Scale 4-6 (Moderate) 10 Days Qty: 20 0RF Referrals: No Primary/Family,Physician [Primary Care Provider] Patient/Caregiver Discharge Instructions Discharge Activity: activity as tolerated and other Other Discharge Activity Instructions:: vaginal rest and no heavy lifting more than 10 pounds for 6 weeks Other Discharge Diet Instructions: regular Education Materials: After a Vaginal Print Language: Maltese Activity Restrictions/Additional Instructions: follow up with your OBGYN in 4 to 6 weeks for visit, call clinic to schedule appointment Stand Alone Forms: Marge Award Info., Patient Portal Info Letter Discharge Order Discharge Orders: Discharge (Routine); Ordered 02/14/25 Ordered By: Alexandra Lovell Planned Discharge Date 02/14/25
--- NOTE | 2025-02-14 10:46 | PC.NURSE ---
Dimitris from ss rounded to see pt per Dimitris pt is clear for discharge.
--- NOTE | 2025-02-14 11:39 | PC.SS ---
SERVICE ARCHITECT conducted bedside contact with the patient to address nursing referral indicating patient was late to care at 15 weeks.? SERVICE ARCHITECT introduced self and role.? At bedside with patient was YAZB, Marshall Suarez.? Patient gave permission for FOB to be present during discussion.? SERVICE ARCHITECT reviewed basis of referral.? Patient confirmed late to care (15 weeks) due to the patient not being aware of .? Patient stated no initial presence of symptoms indicating .? Upon confirmation, initial OB appointment made after 12 week threshold.? OB services conducted with Dr. Denney.? Patient reports consistency with OB appointments.? , Catalinayla; is the patient?s second child.? delivered naturally.? Dr. Nobles will be ?s [place]. senator.? Patient?s other child is 14 months old.? Patient is not receiving WIC, SNAP or TANF. ?Patient denies history of alcohol/drug abuse.? Patient denies CWS intervention.? Patient denies episodes of domestic violence.? Patient denies possessing a history of mental health, reports no current possession of depression or anxiety.? Patient plans on breast feeding the .? Patient has access to appropriate supplies and equipment; to include a car seat.? FOB will provide transportation upon discharge.? Patient describes possessing support system consisting of parents and extended family.? SERVICE ARCHITECT provided the patient with community resources to include Parenting Network and Warm Line.? No further intervention required at this time, psychiatric social worker will be available to address any further concerns.? SERVICE ARCHITECT updated bedside nurse.?
--- NOTE | 2025-02-19 08:31 | OBDSUM_ITS ---
Data (Carter) Data Hx Section: No Maternal Blood Type: A Pos Rubella Titre: Positive RPR: Non-reactive Labs: Negative: RPR, Hepatitis B, HIV, Chlamydia, Gonorrhea and Group Beta Strep and Unknown: Herpes Type 1 and Herpes Type 2 : 2 Term: 1 : 0 Livin Abortions: Spontaneous & Theraputic: 0 Delivery Data (Carter) Labor Data Initiation of labor: Spontaneous Induction/Augmentation Agent: None ROM date: 02/13/25 ROM time: 07:08 Amniotic membrane rupture type: Spontaneous Amniotic fluid description: Clear Delivery Data EDC: 02/27/25 EDC calculated by:: LMP/early US confirmation Date of arrival to unit: 02/13/25 Time of arrival to unit: 05:00 Onset of labor date: 02/13/25 Onset of labor time: 05:00 Complete dilation date: 02/13/25 Complete dilation time: 07:06 [place] delivery date: 02/13/25 [place] delivery time: 07:09 Gestational age (weeks): 38 Gestational age (days): 0 Placenta delivery date: 02/13/25 Placenta delivery time: 07:14 Stage 1 total time: Labor - Stage 1 Duration 2 hours and 6 minutes Delivered by: Krystle Drew (OB Clinic) Delivery nurse: DIXIE Wiseman nurse: RUY Mental Health Counselor at delivery: No Support person(s) at delivery: YAZB Other staff at delivery: Sarai MANCINI personal financial counselor Method Delivery method: Normal Vaginal Delivery Presentation: Vertex position: OA Anesthesia Type Anesthesia Type: Local Delivery Room Medications Delivery room medications: Pitocin 20 u IV Placenta Placenta delivery description: Spontaneous Cord blood sent to lab: Yes cord blood collection: Cord Blood Type Episiotomy Episiotomy description: None Lacerations #1: Perineal: 1st degree Perineal repair Sutures used for repair: 4.0 Chromic EBL Estimated blood loss (ml): 150 Umbilical Cord cord description: 3 Vessels Additional Procedures The patient is a 25-year-old -0-0-1 with all care uncomplicated at the [facility] OB clinic with Dr. Arianna Drew who presented 02/13/25 at 5:00 in the morning in active labor. She was 6 cm dilated on presentation and desired to go natural. She was herminio adequately every 2 minutes. She rapidly progressed to complete 2 hours after admission without the aid of any augmentation and began pushing at 0706 in the morning and delivered a live born male at 0709 after pushing through 1 contraction. Of note, she ruptured her membranes right around 7:00 in the morning. Findings:live born male in the HARDIK presentation with no nuchal cord and no meconium. Apgars were 9 and 9. Weight was 7 pounds 1 ounce. As the baby was vigorous at , he was placed on mom's chest and delayed cord clamping was performed. After about 1 to 2 minutes, the cord was clamped and cut. Cord blood was collected, cord gases were saved. The placenta was complete, spontaneous, and grossly normal. Delivering within 5 minutes of the baby delivering. The patient sustained a first-degree perineal laceration repaired in a standard fashion using 4-0 chromic. EBL was about 100 cc. Complications were none. Condition: both mom and were in stable condition the delivery room. Complications Complications: None Data ([facility]arter) [place] Data order: 1 [place]'s gender: Male weight (gms): 3205 g Weight (pounds): 7 lbs and 1.1 ozs 1 minute: 9 5 minutes: 9
== END 2025-02-14 11:13 | disposition home or self-care (01) | DRG 807 ==
LOC: S4SX 07:46 → S4NX 11:31
PROVIDERS: Obstetrics & Gynecology; Admitting Provider Obstetrics & Gynecology; Visit Provider Obstetrics & Gynecology
DX: O70.0 First degree perineal laceration during delivery (principal); Z37.0 Single live birth; Z3A.38 38 weeks gestation of pregnancy
CPT/HCPCS: 36415; 59409; 80307; 85025; 86780; 86850; 86900; 86901; 87491; 87591; 87661; 94762; J2210; J2590; J3490; A9270

== ENCOUNTER 2025-03-13 10:29 | Outpatient (AMB) | payer BC, SELFPAY ==
--- NOTE | 2025-03-13 10:43 | AMB.OBVISIT ---
Vital Signs 03/13/25 10:44 Height 1.6 m Height Method Stated Weight 67.642 kg Weight Measurement Method Standing Scale BMI 26.4 BP 113/62 Blood Pressure Source Automatic Cuff Blood Pressure Location Left Upper Arm Position Sitting Respiration 16 Pulse 78 Pulse Source Monitor Temp 97.2 F Temp Source Oral Pulse Oximetry (%) 98 Oxygen Delivery Method Room Air Allergies/Home Meds Allergies & Medications Allergies No Known Allergies Allergy (Verified 03/13/25 10:45) Medication Reconciliation No Known Home Medications 03/13/25 [History Confirmed 03/13/25] Intake Visit Data Collection New Patient or Established: Established Patient (seen at [facility] within 3 years) Reason for Visit:: PP Seen by Clinical Staff ONLY (RN/MA): No Senior Solutions Engineer Required: No Do You Feel Safe at Home: Yes Authorities Contacted: N/A PCP or OBGYN visit in last 3 months: Yes Date of Last PCP or OBGYN visit: 02/14/25 Hx Now: No Are you currently on any form of Control: No Pain Present Currently: No Pain Scale Used: Ch-Child/Numerical Pain scale:: 0 Smoking Status Smoking Status: Never smoker Questionnaires Covid-19 Vaccine Questionnaire Has patient been vacinated for Covid-19 Have you been vacinated for Covid-19: Yes PHQ-9 PHQ-2 Over the last 2 weeks, how often have you been bothered by any of the following problems? 1. Little interest or pleasure in doing things: not at all 2. Feeling down, depressed, or hopeless: not at all Total score: 0 PHQ-9 3. Trouble falling or staying asleep, or sleeping too much: Not at all 4. Feeling tired or having little energy: Not at all 5. Poor appetite or overeating: Not at all 6. Feeling bad about yourself - or that you are a failure or have let yourself or your family down: Not at all 7. Trouble concentrating on things, such as reading the newspaper or watching television: Not at all 8. Moving or speaking so slowly that other people could have noticed? - Or the opposite - being so fidgety or restless that you have been moving around a lot more than usual: not at all 9. Thoughts that you would be better off or of hurting yourself in some way: Not at all Total score: 0 If you checked off any problems, how difficult have these problems made it for you to do your work, take care of things at home, or get along with other people?: not difficult at all Source: Developed by Drs. Oscar Quarles, Lottie Boswell, Anjel Berry and colleagues, with an educational gage from [employer]. 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 15w0d, presents for initial visit. No CTX/LOF/VB. Reports good overall health. No CABRERA/VS, Epig/RUQ pain. Unsure of LMP; confirmed previously. Delivered healthy male (Antwan) 8 months ago via vaginal delivery at [place] by Dr. Gurrola. No current complaints. Has stopped . Taking vitamins. Ultrasound (09/04/2024): FHR 148 bpm, EGA ~15w based on HC. Femur and tibia visualized. Assessment & Plan: Confirmed intrauterine , dating by ultrasound at ~15w0d. Complete comprehensive ultrasound for dating and anatomy Order full initial lab panel Order genetic screening (trisomy 13/18/21) Schedule level 2 anatomy US at [facility] ([place] Labs to be completed at [facility] due to insurance Continue vitamins Provided paperwork for labs and imaging Reviewed education and warning signs 10/07/24 <del>?</del> 19w 5d 64.013 kg 116/66 145 active No CTX/LOF/VB, reports good FM. No CABRERA/VC/RUQ/Epig pain. Patient feels improvement in symptoms; no nausea, vomiting, or cramping. FHR: Detected on ultrasound. Anatomy visualized including legs, spine, ribs, vessels, and head. Labs: A+ blood type, Ab screen neg, Rubella immune, Hgb 12.7, Hct 36.8, RPR non-reactive, Hep B non-reactive, HIV negative. 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 11/06/24 <del>?</del> 24w 0d 67.755 kg 120/67 24 147 active No vaginal bleeding good movement. Patient reports a odor and discharge. Possible fishy smell. History of BV in the past x 1. Had NIPT and is normal 46XX. 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 12/03/24 <del>?</del> 27w 6d 71.781 kg 117/69 active No vaginal bleeding good movement no loss of fluids reviewed glucose challenge test which is low at 59. Her hemoglobin is 11. Recommend iron and B12. Patient to have frequent snacks. Glucose challenge test low at 59. Hemoglobin is 11. Recommended frequent snacks. 01/01/25 <del>?</del> 32w 0d 74.446 kg 113/72 32 145 active NO VB or LOF. Baby very active. Need repeat US for growth/anatomy 01/13/25 <del>?</del> 33w 5d 74.899 kg 113/68 absent 34 137 active Baby active. No VB or UCs Need GBBS next visit 01/29/25 <del>?</del> 36w 0d 77.621 kg 118/67 absent cephalic 35 143 active NO UCs or LOF, No VB GBBS done 02/04/25 <del>?</del> 36w 6d 78.018 kg 123/77 occasional cephalic 37 135 active No LOF or VB GBBS negative 02/12/25 <del>?</del> 38w 0d 78.698 kg 117/68 occasional cephalic 36 145 active 4 -2 70 Good movement occasional contractions no pressure. No loss of fluids or vaginal bleeding GBBS negative LILIANA Calculator Estimated Delivery Date Method Current WG Current Estimate 02/26/25 Ultrasound #1 42w 1d Other Estimates 02/26/25 LMP (Uncertain) 42w 1d Expected Delivery Route/Plan -0-0-1 had a vaginal delivery in 2023. A son named Antwan. Anticipate . No epidural last time. hemorrhage without transfusion last delivery. + Bakri Balloon Delivered at [facility] This baby is a girl who will be named Juliet. Specific Issue/Plans Close interval pregnancies Notes Visit Date: 02/12/25 Last Updated by: Krystle Drew (OB Clinic)MD Patient is 4 cm dilated. Labor precautions and kick counts given. Patient would like to go natural. Her is in the room today as it is their 1-year-old son and he states they live within 5 minutes of the hospital. Patient did come in for rupture of membranes decreased movement or labor. She will follow-up in 1 week. Visit Date: 01/13/25 Last Updated by: Krystle Drew (OB Clinic)MD Authorized for US for growth Need Structural Survey Results from Children's Visit Date: 01/01/25 Last Updated by: Krystle Drew (OB Clinic)MD One hour GCT 59 Visit Date: 12/03/24 Last Updated by: Krystle Drew (OB Clinic)MD labs on the chart A positive/antibody negative/ rubella immune/ RPR nonreactive/ HIV negative/ hepatitis B surface antigen negative./ NIPT 46XX. Visit Date: 11/06/24 Last Updated by: Krystle Drew (OB Clinic), Possible BV. Ordered MetroGel. Reviewed NIPT normal. Ordered GCT at [facility]. Office Procedures OBC Clinic LOC & Office Proc's Nursing/Assessment Patient Status: Established Patient OB Clinic Nursing Assessment: Medication Reconciliation, Update PMH in EMR and Vital Signs OB Clinic Coordination of Care: Education Complex Pt/Fam, Consent,records obtained, informed consent, Lab and Imaging orders, Results/Orders obtained and Staff clarify orders Established Patient Charge Established Patient Point Assignment: 85 Established Patient Point Charge: EP Level 3 (80-115) Assessment & Plan Diagnosis / Problem List (1) Routine Follow-Up:
[2025-03-13 10:44] VITALS: BP 113/62; PULSE 78; RESP 16; TEMP 36.2; O2SAT 98; BMI 26.4
--- NOTE | 2025-03-13 11:06 | AMB.OBPP ---
Vital Signs 03/13/25 10:44 03/13/25 11:07 Height 1.6 m Height Method Stated Weight 67.642 kg Weight Measurement Method Standing Scale BMI 26.4 BP 113/62 113/62 Blood Pressure Source Automatic Cuff Blood Pressure Location Left Upper Arm Position Sitting Respiration 16 16 Pulse 78 78 Pulse Source Monitor Temp 97.2 F 97.2 F Temp Source Oral Pulse Oximetry (%) 98 98 Oxygen Delivery Method Room Air Allergies/Home Meds Allergies & Medications Allergies No Known Allergies Allergy (Verified 03/13/25 10:45) Medication Reconciliation No Known Home Medications 03/13/25 [History Confirmed 03/13/25] Intake Visit Data Collection New Patient or Established: Established Patient (seen at [facility] within 3 years) Reason for Visit:: PP Seen by Clinical Staff ONLY (RN/MA): No Contour Stitcher Required: No Do You Feel Safe at Home: Yes Authorities Contacted: N/A PCP or OBGYN visit in last 3 months: Yes Date of Last PCP or OBGYN visit: 02/14/25 Hx Now: No Are you currently on any form of Control: No Pain Present Currently: No Pain Scale Used: Ch-Child/Numerical Pain scale:: 0 Smoking Status Smoking Status: Never smoker 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: Past Medical History Past Medical History: No Hx Neurological Disorders, No Hx Cardiac Disorders, No Hx Cancer, No Hx Blood Disorders, No Hx Gastrointestinal Disorders, No Hx Renal Disease, No Hx Diabetes Mellitus Type 1 and No Hx Diabetes Mellitus Type 2 Questionnaires Covid-19 Vaccine Questionnaire Has patient been vacinated for Covid-19 Have you been vacinated for Covid-19: No Social History Living Situation History Marital Status: Single Lives With: Family Housing: Apartment Tobacco History Smoking Status: Never smoker Second Hand Smoke Exposure: No Alcohol History Alcohol Intake: Never Domestic Abuse History Do You Feel Safe at Home: Yes EPDS - PP Depression Screening [place] Depression Screen I have been able to laugh and see the funny side of things: (0) As much as I always could I have looked forward with enjoyment to things: (0) As much as I ever did I have blamed myself unnecessarily when things went wrong: (0) No, never I have been anxious or worried for no good reason: (0) No, not at all I have felt scared or panicky for no very good reason: (0) No, not at all Things have been getting on top of me: (0) No, I have been coping as well as ever I have been so unhappy that I have had difficulty sleeping: (0) No, not at all I have felt sad or miserable: (0) No, not at all I have been so unhappy that I have been crying: (0) No, never The thought of harming myself has occurred to me: (0) Never Total Score: EPDS Score: Referral is indicated for score of 9 or more, suicidal, or if provider believes patient is depressed regardless of score.: 0 EPDS completed yes Care OB Visit Log OB Flowsheet Initial Weight: Not Recorded Date <del>?</del> EGA Weight BP Alb Glu CTX Pres Fundal ht FHR Mov Dilation Station Effacement Hx Notes Visit Note 09/04/24 <del>?</del> 15w 0d 61.915 kg 100/62 Justina H., at approx. 15w0d, presents for initial visit. No CTX/LOF/VB. Reports good overall health. No CABRERA/VS, Epig/RUQ pain. Unsure of LMP; confirmed previously. Delivered healthy male (Antwan) 8 months ago via vaginal delivery at [place] by Dr. Gurrola. No current complaints. Has stopped . Taking vitamins. Ultrasound (09/04/2024): FHR 148 bpm, EGA ~15w based on HC. Femur and tibia visualized. Assessment & Plan: Confirmed intrauterine , dating by ultrasound at ~15w0d. Complete comprehensive ultrasound for dating and anatomy Order full initial lab panel Order genetic screening (trisomy 13/18/21) Schedule level 2 anatomy US at [facility] Labs to be completed at [facility] due to insurance Continue vitamins Provided paperwork for labs and imaging Reviewed education and warning signs 10/07/24 <del>?</del> 19w 5d 64.013 kg 116/66 145 active No CTX/LOF/VB, reports good FM. No CABRERA/VC/RUQ/Epig pain. Patient feels improvement in symptoms; no nausea, vomiting, or cramping. FHR: Detected on ultrasound. Anatomy visualized including legs, spine, ribs, vessels, and head. Labs: A+ blood type, Ab screen neg, Rubella immune, Hgb 12.7, Hct 36.8, RPR non-reactive, Hep B non-reactive, HIV negative. Assessment & Plan: Uncomplicated at 19w5d Provide referral for level 2 anatomy scan at [facility]?s (before 24w) Genetic screening form given (DS + gender) F/u visit scheduled 10/16 at 12:00 PM Schedule 4-week return at front line leader Routine counseling reviewed Let me know if you'd like this added to your consolidated OB note set. 11/06/24 <del>?</del> 24w 0d 67.755 kg 120/67 24 147 active No vaginal bleeding good movement. Patient reports a odor and discharge. Possible fishy smell. History of BV in the past x 1. Had NIPT and is normal 46XX. 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 12/03/24 <del>?</del> 27w 6d 71.781 kg 117/69 active No vaginal bleeding good movement no loss of fluids reviewed glucose challenge test which is low at 59. Her hemoglobin is 11. Recommend iron and B12. Patient to have frequent snacks. Glucose challenge test low at 59. Hemoglobin is 11. Recommended frequent snacks. 01/01/25 <del>?</del> 32w 0d 74.446 kg 113/72 32 145 active NO VB or LOF. Baby very active. Need repeat US for growth/anatomy 01/13/25 <del>?</del> 33w 5d 74.899 kg 113/68 absent 34 137 active Baby active. No VB or UCs Need GBBS next visit 01/29/25 <del>?</del> 36w 0d 77.621 kg 118/67 absent cephalic 35 143 active NO UCs or LOF, No VB GBBS done 02/04/25 <del>?</del> 36w 6d 78.018 kg 123/77 occasional cephalic 37 135 active No LOF or VB GBBS negative 02/12/25 <del>?</del> 38w 0d 78.698 kg 117/68 LILIANA Calculator Estimated Delivery Date Method Current WG Current Estimate 02/26/25 Ultrasound #1 42w 1d Other Estimates 02/26/25 LMP (Uncertain) 42w 1d Expected Delivery Route/Plan -0-0-1 had a vaginal delivery in 2023. A son named Antwan. Anticipate . No epidural last time. hemorrhage without transfusion last delivery. + Bakri Balloon Delivered at [facility] This baby is a girl who will be named Juliet. Specific Issue/Plans Close interval pregnancies Notes Visit Date: 02/12/25 Last Updated by: Krystle Drew ([facility])MD Patient is 4 cm dilated. Labor precautions and kick counts given. Patient would like to go natural. Her is in the room today as it is their 1-year-old son and he states they live within 5 minutes of the hospital. Patient did come in for rupture of membranes decreased movement or labor. She will follow-up in 1 week. Visit Date: 01/13/25 Last Updated by: Krystle Drew ([facility])MD Authorized for US for growth Need Structural Survey Results from Children's Visit Date: 01/01/25 Last Updated by: Krystle Drew ([facility])MD One hour GCT 59 Visit Date: 12/03/24 Last Updated by: Krystle Drew ([facility])MD labs on the chart A positive/antibody negative/ rubella immune/ RPR nonreactive/ HIV negative/ hepatitis B surface antigen negative./ NIPT 46XX. Visit Date: 11/06/24 Last Updated by: Krystle Drew ([facility])MD Possible BV. Ordered MetroGel. Reviewed NIPT normal. Ordered GCT at [facility]. HPI Interval History: 25-year-old 2 para 2. Patient had a vaginal February 13, 2025. A baby girl weighing 7 pounds 1 ounce. Patient is breast-feeding without problems. She has good family support. The father of the baby is involved. The siblings adjusting. No interval complaints Was or delivery considered high risk: No Delivery type: vaginal Was labor induced: no Gestational age at delivery (weeks): 38 Delivery date: 02/13/25 Delivering provider: izzy Delivery complications: No Is patient infant: Yes Is patient sexually active: No Contraception planned: none Review of Systems Review of Systems ROS limited to current 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 complaints: Yes Exam Narrative Physical exam: Normal heart rate and rhythm. Lungs clear no wheezes. Abdomen is soft nontender. Uterus well involuted. Perineum is intact no lacerations. No swelling. Small lochia. Negative Homans' sign. 2+ DTRs. No edema no swelling. Breasts are soft General Limitations: no limitations General Appearance: alert, in no apparent distress, comfortable, cooperative, healthy appearing, well developed and well groomed Head Head exam: atraumatic, normocephalic and normal inspection Neck Neck exam: Present normal inspection, full ROM and trachea midline Chest Chest inspection: Present normal inspection and symmetric chest wall rise Resp Respiratory exam: Present normal lung sounds bilaterally Card Cardiovascular exam: Present regular rate, normal rhythm and normal heart sounds Abdominal Abdominal exam: Present soft and normal bowel sounds Extremities Extremities exam: Present normal inspection and full ROM Psych Psychiatric exam: Present normal affect and normal mood Office Procedures [facility] LOC & Office Proc's Nursing/Assessment Patient Status: Established Patient OB Clinic Nursing Assessment: Medication Reconciliation, Update PMH in EMR and Vital Signs OB Clinic Coordination of Care: Education Complex Pt/Fam, Consent,records obtained, informed consent, Lab and Imaging orders, Results/Orders obtained and Staff clarify orders Established Patient Charge Established Patient Point Assignment: 85 Established Patient Point Charge: EP Level 3 (80-115) Assessment & Plan Diagnosis / Problem List (1) Routine Follow-Up: (2) 6 weeks follow-up: Status: Acute Plan Continue breast-feeding. Reviewed latching and breast-feeding positions. Continue prenatals. Increase fluids. Discussed diet and weight. Return as needed for control Care Reviewed delivery summary and any complications: Yes Uterus involuted to: 3 below Perineal / incision healing noted: Yes Screened for depression: Yes Depression counseling provided: No Discussed family planning & contraception: Yes Contraception planned: none Counseling on safe resumption of sexual activity: Yes Counseling on gradual excercise: Yes Discussed and concerns (describe), provided support: Yes Referred to accounting specialist: No Counseled on good nutrition, hydration, and self care: Yes Reviewed vaccine status: No Chronic & current problems reconciled on problem list: Yes care discussed; questions answered: feeding Follow up: routine/prn Additional counseling & anticipatory guidance provided: rtc as needed (FP) Tobacco Smoking Status: Never smoker
[2025-03-13 11:07] VITALS: BP 113/62; PULSE 78; RESP 16; TEMP 36.2; O2SAT 98
== END 2025-03-13 11:09 | disposition home or self-care (01) ==
LOC: HODSOBC 10:29
PROVIDERS: Supervising Provider Advanced Practice Midwife; Visit Provider Advanced Practice Midwife
DX: Z39.2 Encounter for routine postpartum follow-up (principal); Z39.1 Encounter for care and examination of lactating mother
CPT/HCPCS: 99213; G0463

== ENCOUNTER → 2025-05-19 | Outpatient (CLI) | payer BC, SELFPAY ==
[2025-05-19 11:25] LABS: Basophils # (Auto) 0.1 Thou/mm3 (0.0-0.2); Basophils % (Auto) 1 % (0-2.5); Eosinophils # (Auto) 0.6 Thou/mm3 (0.0-0.5); Eosinophils % (Auto) 8 % (0-10); Hematocrit 40.5 % (36.0-46.0); Hemoglobin 12.8 g/dL (12.0-16.0); Immature Granulocytes Auto 0.02 Thou/mm3 (0.00-0.00); Lymphocytes # (Auto) 2.2 Thou/mm3 (1.0-4.8); Lymphocytes % (Auto) 27 % (10-50); Mean Corpuscular HGB Conc 31.6 g/dl (31.0-37.0); Mean Corpuscular Hemoglobin 27.4 pg (25.0-35.0); Mean Corpuscular Volume 87 fL (80-100); Monocytes # (Auto) 0.4 Thou/mm3 (0.0-0.8); Monocytes % (Auto) 5 % (0-12); Neutrophils # (Auto) 4.6 Thou/mm3 (1.8-7.7); Neutrophils % (Auto) 59 % (37-80); Nucleated Red Blood Cell # 0.00 Thou/mm3 (0.00-0.00); Nucleated Red Blood Cell % 0 /100 WBC (0); Platelet Count 269 Thou/mm3 (140-440); RDW Standard Deviation 49.5 fL (36.4-46.3); Red Blood Count 4.67 Miln/mm3 (4.00-5.20); White Blood Count 7.8 Thou/mm3 (3.6-11.0)
[2025-05-19 11:49] LABS: Collection Type, Urine Clean Catch
[2025-05-19 12:17] LABS: Bilirubin,Urine Negative (Negative); Blood,Urine Negative (Negative); Clarity,Urine Clear (Clear/Hazy); Color,Urine Yellow (Lt Yel-Yel); Culture Indicated,Urine Not Indicated; Glucose, Urine Negative (Negative); Ketones,Urine Negative (Negative); Leukocyte Esterase,Urine Negative (Negative); Nitrite,Urine Negative (Negative); PH,Urine 7.0 (5.0-7.0); Protein,Urine Trace (Neg - Trace); RBC,Urine 2 /hpf (0-3); Specific Gravity,Urine 1.040 (1.001-1.035); Squamous Epithelial Cell,Urine 1 /hpf (0-5); Urobilinogen,Urine Negative mg/dL (0.0-1.0); WBC,Urine 1 /hpf (0-5)
[2025-05-19 12:35] LABS: Glucose Estimated Average 108 mg/dL (80-131); Hemoglobin A1C 5.4 % Hgb (4.8-6.0)
[2025-05-19 12:43] LABS: Alanine Aminotransferase 16 U/L (10-49); Albumin, Serum 4.8 gm/dL (3.5-5.0); Albumin/Globulin Ratio 1.5 (1.2-2.2); Alkaline Phosphatase 119 U/L (46-116); Anion Gap 11 (7-16); Aspartate Amino Transferase 20 U/L (0-34); BUN/Creatinine Ratio 17 Ratio (12-20); Bilirubin,Total 0.4 mg/dL (0.3-1.2); Blood Urea Nitrogen 12 mg/dL (9-23); Calcium 9.6 mg/dL (8.3-10.6); Calcium (Corrected) 9.6 mg/dL (8.5-10.1); Carbon Dioxide 27.0 mMol/L (20.0-31.0); Cardiac Risk Estimate 2.9 RATIO (3.7-5.6); Chloride 105 mMol/L (98-107); Cholesterol 159 mg/dL (132-200); Creatinine (Component) 0.7 mg/dL (0.6-1.3); Free T4 (Free Thyroxine) 1.27 ng/dL (0.89-1.76); Globulin 3.1 gm/dL (2.3-3.5); Glucose 89 mg/dL (74-106); HDL Cholesterol 55 mg/dL (40-60); LDL Cholesterol,Calculated 94 mg/dL (0-130); Osmolality,Calculated 283 (275-295); Potassium 4.5 mMol/L (3.4-5.1); Sodium 143 mMol/L (136-145); Thyroid Stimulating Hormone 0.64 uIU/mL (0.55-4.78); Total Protein 7.9 gm/dL (5.7-8.2); Triglycerides 50 mg/dL (30-150); eGFR > 60 See Note
[2025-05-19 12:45] LABS: Iron 70 mcg/dL (50-170); Percent Iron Saturation 22 % (20-55); Total Iron Binding Capacity 308 mcg/dL (250-425); Unsaturated Iron Binding 238 (225-295)
[2025-05-19 13:22] LABS: Vitamin B12 1733 pg/mL (211-911); Vitamin D 25 Hydroxy Total 31.2 ng/mL (7.3-40.2)
== END | disposition home or self-care (01) ==
PROVIDERS: PCP Registered Nurse; Referring Provider Registered Nurse; Visit Provider Registered Nurse
DX: Z00.00 Encounter for general adult medical examination without abnormal findings (principal); R53.82 Chronic fatigue, unspecified
CPT/HCPCS: 36415; 80053; 80061; 81001; 82306; 82607; 83036; 83540; 83550; 84439; 84443; 85025